=== PATIENT | female | born 1955 | race Caucasian/White ===

== ENCOUNTER 2017-03-02 08:18 | Emergency (ER) | payer OTHER ==
[~2017-03-02] VITALS: Ht 165.1 cm; Wt 107.5 kg
[~2017-03-02 08:18] MED LIST: AMIT75TA13 PO; ATEN50TA PO; FURO-152 PO; GLIM4TAB3 PO; GUAI5SYR4 PO; LOSARTAN PO; SIMV20TA6 PO; Vitamin E TP
[2017-03-02] MEDS ORDERED: SIMV40TA5 PO (08:46)
[2017-03-02] MEDS ORDERED: ALPR1TAB7 PO (08:46)
[2017-03-02] MEDS ORDERED: IV NORMAL SALINE 1000 ML BAG IV ONE (09:00)
[2017-03-02] MEDS ORDERED: LORAZEPAM 2 MG/1 ML VIAL IV ONE (09:00)
[2017-03-02] MEDS ORDERED: LORAZEPAM 2 MG/1 ML VIAL ONE (09:12)
--- NOTE | 2017-03-02 09:14 | NUR ---
0845-Patient is resting comfortably on gurney while watching bedside TV, NAD, no sob seen
[2017-03-02 09:15] LABS: BASOPHILS # (AUTO) 0.1 K/uL (0.0-8.0); BASOPHILS % (AUTO) 0.9 % (0.0-2.0); EOSINOPHILS # (AUTO) 0.5 K/uL (0.0-0.7); EOSINOPHILS % (AUTO) 6.7 % (0.0-7.0); HEMATOCRIT 34.1 % (37-47); HEMOGLOBIN 11.4 G/DL (12.0-16.0); LYMPHOCYTES # (AUTO) 1.7 K/uL (20.0-40.0); MEAN CORPUSCULAR HEMOGLOBIN 29.1 UUG (27.0-31.0); MEAN CORPUSCULAR HGB CONC 34 g/dL (32.0-37.0); MEAN CORPUSCULAR VOLUME 87.1 FL (81.0-99.0); MONOCYTES # (AUTO) 0.5 K/uL (2.0-10.0); MONOCYTES % (AUTO) 6.5 % (0.0-11.0); NEUTROPHILS # (AUTO) 4.7 K/uL (1.8-8.9); NEUTROPHILS % (AUTO) 62.9 % (38.5-71.5); PLATELET COUNT (AUTO) 298 K/UL (150-450); RED BLOOD CELL COUNT(AUTO) 3.91 MIL/UL (4.2-5.4); RED CELL DISTRIBUTION WIDTH 12.4 % (11.5-14.5); WHITE BLOOD COUNT (AUTO) 7.5 K/UL (4.0-11.2)
[2017-03-02 09:25] LABS: CALCIUM 9.2 mg/dL (8.5-10.1); POTASSIUM 4.9 mmol/L (3.5-5.1)
[2017-03-02 09:27] LABS: CREATININE 1.9 mg/dL (0.6-1.3)
[2017-03-02 09:37] LABS: ALBUMIN 3.3 g/dL (3.4-5.0); BILIRUBIN,DIRECT 0.1 mg/dL (0.0-0.2); BILIRUBIN,TOTAL 0.3 mg/dL (0.2-1.0); TOTAL PROTEIN, SERUM 7.2 g/dL (6.4-8.2)
--- NOTE | 2017-03-02 10:30 | NUR ---
Patient is resting comfortably on gurney with eyes closed, visitor at bedside, no complaints at this moment.
--- NOTE | 2017-03-02 11:21 | NUR ---
1110- Patient ambulated with 2 person assist to bathroom to void but unablt to give urine, MD notified. Patient c/o bilateral knee weaknees & mild discomfort during ambulation.
[2017-03-02 11:50] LABS: *BILIRUBIN,URIN NEGATIVE (NEGATIVE); *BLOOD, URINE Trace-lysed (NEGATIVE); *CLARITY,URINE CLEAR (CLEAR); *COLOR,URINE LIGHT YELLOW (YELLOW); *KETONES,URINE NEGATIVE (NEGATIVE); *PROTEIN,URINE NEGATIVE (NEGATIVE); *UROBILINOGEN,URINE 0.2 E.U./dl (NORMAL); LEUKOCYTE ESTERASE ,URINE NEGATIVE (NEGATIVE); NITRITE, URINE NEGATIVE (NEGATIVE); UGLUCOSE NEGATIVE (NEGATIVE)
[2017-03-02 12:15] LABS: BACTERIA,URINE FEW /HPF (NONE SEEN); SQUAMOUS EPITHELIAL CELL,UR FEW /HPF (NONE SEEN)
[2017-03-02] MEDS ORDERED: NITROFURANTOIN/NITROFURAN MAC 100 MG CAPSULE PO ONE (13:45)
[2017-03-02] MEDS ORDERED: NITROFURANTOIN/NITROFURAN MAC 100 MG CAPSULE ONE (13:52)
--- NOTE | 2017-03-02 13:52 | NUR ---
Patient discharged to home in stable conditon. Written and verbal after care instructions given to patient. Patient verbalizes understanding of instructions. Diabetic tray was ordered from kitchen. 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
== END 2017-03-02 13:58 | disposition home or self-care (01) ==
LOC: ER 08:18
DX: N39.0 Urinary tract infection, site not specified (principal); F41.9 Anxiety disorder, unspecified; I10 Essential (primary) hypertension; E11.9 Type 2 diabetes mellitus without complications; F17.200 Nicotine dependence, unspecified, uncomplicated; Z88.8 Allergy status to other drugs, medicaments and biological substances
CPT/HCPCS: 36415; 51702; 70450; 71010; 80048; 80076; 81001; 83880; 84484; 85025; 87086; 93005; 96361; 96374; 99285; A4663; C1758; J2060; 70030-TC

== ENCOUNTER 2017-08-20 13:37 | Inpatient (IN) | payer OTHER ==
[~2017-08-20] VITALS: Ht 165.1 cm; Wt 65.3 kg
[~2017-08-20 13:37] MED LIST changes: +ALPR1TAB7 PO; -FURO-152 PO; -GUAI5SYR4 PO; -SIMV20TA6 PO; +SIMV40TA5 PO
[2017-08-20] MEDS ORDERED: IV NORMAL SALINE 500 ML BAG IV ONE ×2 (14:00→14:15)
--- NOTE | 2017-08-20 14:04 | NUR ---
PT IS IN ROOM #2A. DR WING EVALUATED THE PT.
[2017-08-20] MEDS ORDERED: CEFTRIAXONE 1 G in IV DEXTROSE 5% 50 ML IV ONE (14:15)
[2017-08-20] MEDS ORDERED: ACETAMINOPHEN ES 500 MG TABLET PO ONE (14:15)
[2017-08-20 14:19] LABS: *BILIRUBIN,URIN NEGATIVE (NEGATIVE); *BLOOD, URINE 2+ (NEGATIVE); *CLARITY,URINE SLIGHTLY CLOUDY (CLEAR); *COLOR,URINE YELLOW (YELLOW); *KETONES,URINE NEGATIVE (NEGATIVE); *PROTEIN,URINE NEGATIVE (NEGATIVE); *UROBILINOGEN,URINE 0.2 E.U./dl (NORMAL); LEUKOCYTE ESTERASE ,URINE 1+ (NEGATIVE); NITRITE, URINE NEGATIVE (NEGATIVE); UGLUCOSE NEGATIVE (NEGATIVE)
[2017-08-20] MEDS ORDERED: VITAMIN E (14:19)
[2017-08-20] MEDS ORDERED: CEFTRIAXONE 1 G VIAL ONE (14:26)
[2017-08-20] MEDS ORDERED: ACETAMINOPHEN ES 500 MG TABLET ONE (14:27)
[2017-08-20 14:39] LABS: BACTERIA,URINE MODERATE /HPF (NONE SEEN); SQUAMOUS EPITHELIAL CELL,UR MANY /HPF (NONE SEEN)
[2017-08-20 14:55] LABS: CREATININE 1.5 mg/dL (0.6-1.3); POTASSIUM 4.4 mmol/L (3.5-5.1)
[2017-08-20 14:57] LABS: HEMATOCRIT 37.3 % (37-47); HEMOGLOBIN 12.2 G/DL (12.0-16.0); RED BLOOD CELL COUNT(AUTO) 4.25 MIL/UL (4.2-5.4)
[2017-08-20 14:59] LABS: BASOPHILS % (AUTO) 0.6 % (0.0-2.0); EOSINOPHILS # (AUTO) 0.3 K/uL (0.0-0.7); EOSINOPHILS % (AUTO) 3.8 % (0.0-7.0); LYMPHOCYTES # (AUTO) 1.6 K/UL (0.8-4.8); LYMPHOCYTES % (AUTO) 19.7 % (20.5-51.5); MEAN CORPUSCULAR HEMOGLOBIN 28.8 UUG (27.0-31.0); MEAN CORPUSCULAR HGB CONC 33 g/dL (32.0-37.0); MEAN CORPUSCULAR VOLUME 87.8 FL (81.0-99.0); MONOCYTES # (AUTO) 0.5 K/UL (0.1-1.30); MONOCYTES % (AUTO) 5.6 % (0.0-11.0); NEUTROPHILS # (AUTO) 5.9 K/UL (1.8-8.9); NEUTROPHILS % (AUTO) 70.3 % (38.5-71.5); PLATELET COUNT (AUTO) 236 K/UL (150-450); WHITE BLOOD COUNT (AUTO) 8.3 K/UL (4.0-11.2)
[2017-08-20 15:01] LABS: BILIRUBIN,DIRECT 0.1 mg/dL (0.0-0.2); BILIRUBIN,TOTAL 0.3 mg/dL (0.2-1.0); TOTAL PROTEIN, SERUM 7.3 g/dL (6.4-8.2)
--- NOTE | 2017-08-20 15:15 | NUR ---
CODE SEPSIS CANCELLED BY DR WING. PT IS RESTING IN BED COMFORTABLY. NO S/S OF ACUTE DISTRESS AT THIS TIME.
[2017-08-20] MEDS ORDERED: ACETAMINOPHEN 325 MG TABLET PO PRN (15:45)
[2017-08-20] MEDS ORDERED: ONDANSETRON 4 MG/2 ML VIAL IV PRN (15:45)
--- NOTE | 2017-08-20 16:16 | NUR ---
REPORT WAS GIVEN TO RN M/S. PT WAS TRANSFERED TO M/S ROOM #214.
[2017-08-20 17:00] VITALS: BP 128/89
[2017-08-20] MEDS ORDERED: DEXTROSE 50% 50 ML DISP.SYRIN IV PRN (17:00)
[2017-08-20] MEDS ORDERED: PROMETHAZINE/CODEINE 5 ML UDC PO PRN (17:00)
[2017-08-20] MEDS ORDERED: AMITRIPTYLINE HCL 75 MG PO SCH (17:00)
[2017-08-20] MEDS ORDERED: ALPRAZOLAM 0.5 MG TABLET PO PRN (17:00)
--- NOTE | 2017-08-20 17:00 | NUR ---
NEW PATIENT TO ROOM 214 AWAKE ALERT COOPERATE WELL NO SOB OR PAIN ON FALL PRECAUTION BED ALARM ON AND CALL LIGHT IN REACH AND INSTRUCTION TO CALL WHEN NEEDED
[2017-08-20] MEDS ORDERED: hydrALAZINE HCL 25 MG TABLET PO PRN (17:15)
--- NOTE | 2017-08-20 18:00 | NUR ---
EAT DINNER WELL NO S/S OF HYPO/HYPERGLYCEMIA NO SOB OR PAIN
[2017-08-20] MEDS: IV NS 1000 ML 1,000 ML IV PRN (18:15)
[2017-08-20] MEDS: GLIMEPIRIDE 4 MG TABLET PO SCH (18:26)
[2017-08-20] MEDS: GUAIFENESIN/CODEINE 5 ML LIQUID UDC PO PRN (18:28)
--- NOTE | 2017-08-20 18:30 | NUR ---
STABLE HEMODYNAMIC SAFETY MEASURE PROVIDED BED ALARM ON AND CALL LIGHT WITHIN REACH NO ACUTE DISTRESS
--- NOTE | 2017-08-20 19:35 | NUR ---
PT RECEIVED IN BED, AWAKE. A/O 4. ABLE TO MAKE NEEDS KNOWN. V/S STABLE. IN NO ACUTE DISTRESS. NO C/O PAIN AT THIS TIME. IVF INFUSING. ON RA, TOLERATING WELL. PT HAS DIFFICULTY COMPLETING SENTENCES. TIRES EASILY. ENCOURAGED PT TO USE CALL LIGHT FOR ASSIST. BED ALARM SET. SAFETY MEASURES IMPLEMENTED. CALL LIGHT WITHIN REACH.
[2017-08-20 20:00] VITALS: BP 117/59
[2017-08-20] MEDS: SIMVASTATIN 40 MG TABLET PO SCH (20:27)
[2017-08-20] MEDS: AMITRIPTYLINE HCL 50 MG TABLET PO SCH (20:28)
[2017-08-20] MEDS: BLOOD SUGAR DIAGNOSTIC 1 EACH STRIP VI SCH (20:32)
[2017-08-20] MEDS: MORPHINE SULFATE 2 MG/1 ML DISP.SYRIN IV PRN (20:38)
[2017-08-20] MEDS: ALPRAZOLAM 0.5 MG TABLET PO PRN (21:59)
[2017-08-21] MEDS: GUAIFENESIN/CODEINE 5 ML LIQUID UDC PO PRN ×4 (00:49→23:17)
[2017-08-21] MEDS: MORPHINE SULFATE 2 MG/1 ML DISP.SYRIN IV PRN ×4 (03:35→23:18)
[2017-08-21 04:54] VITALS: BP 96/62
--- NOTE | 2017-08-21 06:20 | NUR ---
END OF SHIFT NOTES. PT SLEPT INTERMITTENTLY THROUGHOUT SHIFT. PT IN NEED OF FREQUENT REORIENTATION. FORGETFUL. PT IN STABLE CONDITION. IVF INFUSING. PAIN MANAGED. PT C/O OF INCREASED COUGH. PROVIDED ANTITUSSIVE MEDICATION ORDERED. SAFETY MAINTAINED. CALL LIGHT WITHIN REACH.
[2017-08-21] MEDS: BLOOD SUGAR DIAGNOSTIC 1 EACH STRIP VI SCH ×4 (06:26→20:47)
[2017-08-21 06:54] LABS: THYROID STIMULATING HORMONE 4.121 mIU/mL (0.358-3.740)
[2017-08-21 06:55] LABS: BASOPHILS # (AUTO) 0.1 K/uL (0.0-8.0); BASOPHILS % (AUTO) 0.8 % (0.0-2.0); EOSINOPHILS # (AUTO) 0.4 K/uL (0.0-0.7); EOSINOPHILS % (AUTO) 3.9 % (0.0-7.0); HEMATOCRIT 35.8 % (37-47); HEMOGLOBIN 11.6 G/DL (12.0-16.0); LYMPHOCYTES # (AUTO) 3.2 K/UL (0.8-4.8); LYMPHOCYTES % (AUTO) 34.3 % (20.5-51.5); MEAN CORPUSCULAR HEMOGLOBIN 28.5 UUG (27.0-31.0); MEAN CORPUSCULAR HGB CONC 32 g/dL (32.0-37.0); MONOCYTES # (AUTO) 0.7 K/UL (0.1-1.30); MONOCYTES % (AUTO) 7.2 % (0.0-11.0); NEUTROPHILS % (AUTO) 53.8 % (38.5-71.5); PLATELET COUNT (AUTO) 263 K/UL (150-450); RED BLOOD CELL COUNT(AUTO) 4.06 MIL/UL (4.2-5.4); WHITE BLOOD COUNT (AUTO) 9.4 K/UL (4.0-11.2)
[2017-08-21 06:59] LABS: BILIRUBIN,TOTAL 0.3 mg/dL (0.2-1.0); CREATININE 1.5 mg/dL (0.6-1.3); MAGNESIUM 1.7 mg/dL (1.8-2.4); PHOSPHOROUS 4.3 mg/dL (2.5-4.9); POTASSIUM 4.3 mmol/L (3.5-5.1); TOTAL PROTEIN, SERUM 7.5 g/dL (6.4-8.2)
--- NOTE | 2017-08-21 08:00 | NUR ---
Discussed plan of care with pt re: fall precaution, pain management, Pt is agreeable with plan of care. Call light is within reach.
[2017-08-21] MEDS: AMITRIPTYLINE HCL 50 MG TABLET PO SCH ×2 (08:57→20:43)
[2017-08-21] MEDS: GLIMEPIRIDE 4 MG TABLET PO SCH ×2 (08:57→17:20)
[2017-08-21] MEDS: FAMOTIDINE 20 MG TABLET PO SCH (08:57)
[2017-08-21] MEDS ORDERED: MAGNESIUM SULFATE/D5W 100 ML IV SCH (10:15)
[2017-08-21] MEDS: ALPRAZOLAM 0.5 MG TABLET PO PRN ×2 (11:37→20:43)
[2017-08-21 11:38] VITALS: BP 149/83
[2017-08-21] MEDS: CEFTRIAXONE 1 G in IV DEXTROSE 5% 50 ML IV SCH (15:02)
[2017-08-21 15:36] VITALS: BP 116/67
[2017-08-21] MEDS: IV NS 1000 ML 1,000 ML IV PRN (16:30)
[2017-08-21] MEDS: INSULIN REGULAR, HUMAN 300 UNIT/3 ML VIAL SQ PRN (16:44)
--- NOTE | 2017-08-21 18:00 | NUR ---
Pt is in no acute distress. Plan of care effective. No fall noted. Pt currently denies any c/o pain.
--- NOTE | 2017-08-21 19:30 | NUR ---
Pt alert awake in room in no acute distress. No s/s reaction to current abx IV therapy. States pain to right leg. BP 145/83. Able to move upper and lower extremities with limited ROM to left arm. Able to get out of bed. Pt advised to request for help when using commode. No s/s of hypo/hyperglycemia. Continue to monitor. Call light placed withinr each.
[2017-08-21 20:00] VITALS: BP 145/83
[2017-08-21] MEDS: SIMVASTATIN 40 MG TABLET PO SCH (20:43)
--- NOTE | 2017-08-22 01:00 | NUR ---
PT REFUSES TO HAVE CONTINUOUS IV FLUIDS AT THIS TIME. SITE PUT ON HEP LOCK AT THIS TIME.
[2017-08-22 05:25] VITALS: BP 143/64
--- NOTE | 2017-08-22 06:00 | NUR ---
PT IN ROOM ALERT AWAKE IN NO ACUTE DISTRESS. REQUESTED MORPHINE D/T PAIN TO LOWER EXTREMITIES AND SHOULDER. BS NOTED 107. NO S/S OF HYPER/HYPOGLYCEMIA. ABLE TO USE COMMODE WITHOUT DIFFICULTY. NO ABNORMAL SKIN BRUISING NOTED. CONTINUE TO MONITOR.
[2017-08-22] MEDS: MORPHINE SULFATE 2 MG/1 ML DISP.SYRIN IV PRN (06:27)
[2017-08-22] MEDS: BLOOD SUGAR DIAGNOSTIC 1 EACH STRIP VI SCH ×4 (06:36→20:33)
[2017-08-22 06:41] LABS: BASOPHILS % (AUTO) 0.6 % (0.0-2.0); EOSINOPHILS # (AUTO) 0.4 K/uL (0.0-0.7); EOSINOPHILS % (AUTO) 5.4 % (0.0-7.0); HEMATOCRIT 33.3 % (37-47); HEMOGLOBIN 11.3 G/DL (12.0-16.0); LYMPHOCYTES # (AUTO) 1.9 K/UL (0.8-4.8); LYMPHOCYTES % (AUTO) 26.2 % (20.5-51.5); MEAN CORPUSCULAR HEMOGLOBIN 29.6 UUG (27.0-31.0); MEAN CORPUSCULAR HGB CONC 34 g/dL (32.0-37.0); MEAN CORPUSCULAR VOLUME 87.5 FL (81.0-99.0); MONOCYTES # (AUTO) 0.5 K/UL (0.1-1.30); MONOCYTES % (AUTO) 6.8 % (0.0-11.0); NEUTROPHILS # (AUTO) 4.5 K/UL (1.8-8.9); PLATELET COUNT (AUTO) 211 K/UL (150-450); RED BLOOD CELL COUNT(AUTO) 3.81 MIL/UL (4.2-5.4); WHITE BLOOD COUNT (AUTO) 7.3 K/UL (4.0-11.2)
[2017-08-22 06:51] LABS: BILIRUBIN,TOTAL 0.2 mg/dL (0.2-1.0); CREATININE 1.5 mg/dL (0.6-1.3); MAGNESIUM 1.8 mg/dL (1.8-2.4); PHOSPHOROUS 4.5 mg/dL (2.5-4.9); POTASSIUM 4.7 mmol/L (3.5-5.1); TOTAL PROTEIN, SERUM 6.7 g/dL (6.4-8.2)
--- NOTE | 2017-08-22 07:39 | NUR ---
PT RECEIVED IN BED, AWAKE. A/O 3. ABLE TO MAKE NEEDS KNOWN. V/S STABLE. IN NO ACUTE DISTRESS. NO C/O PAIN AT THIS TIME.. ENCOURAGED PT TO USE CALL LIGHT FOR ASSIST. BED ALARM on. SAFETY MEASURES IMPLEMENTED. CALL LIGHT WITHIN REACH.
[2017-08-22] MEDS: GLIMEPIRIDE 4 MG TABLET PO SCH ×2 (08:11→17:13)
[2017-08-22] MEDS: FAMOTIDINE 20 MG TABLET PO SCH (08:11)
[2017-08-22] MEDS: AMITRIPTYLINE HCL 50 MG TABLET PO SCH ×2 (08:11→20:15)
[2017-08-22] MEDS: INSULIN REGULAR, HUMAN 300 UNIT/3 ML VIAL SQ PRN (10:53)
[2017-08-22 11:24] VITALS: BP 112/54
[2017-08-22] MEDS: CEFTRIAXONE 1 G in IV DEXTROSE 5% 50 ML IV SCH (13:23)
[2017-08-22] MEDS: ALPRAZOLAM 0.5 MG TABLET PO PRN ×2 (13:42→22:54)
[2017-08-22] MEDS: IV NS 1000 ML 1,000 ML IV PRN (15:04)
[2017-08-22 15:07] VITALS: BP 120/50
[2017-08-22] MEDS: MUPIROCIN 2% OINT 22 GM TUBE NS SCH ×2 (17:58→20:16)
--- NOTE | 2017-08-22 18:03 | NUR ---
PT IN ROOM ALERT AWAKE IN NO ACUTE DISTRESS. ABLE TO USE COMMODE WITHOUT DIFFICULTY.EAT HER DINNER CONTINUE TO MONITOR.
--- NOTE | 2017-08-22 19:30 | NUR ---
PT IS SITTING EDGE OF THE BED. A/O X 2 WITH PERIODS OF FORGETFULNESS. DENIES ANY PAIN AT THIS TIME. ABLE TO FOLLOW SIMPLE COMMANDS WITHOUT DIFFICULTY. PT REMINDED TO USE CALL LIGHT FOR ASSISTANCE. BEDSIDE COMMODE PRESENT. BP 143/79. CONTINUE TO MONITOR.
[2017-08-22 20:00] VITALS: BP 143/79
[2017-08-22] MEDS: SIMVASTATIN 40 MG TABLET PO SCH (20:15)
--- NOTE | 2017-08-22 23:00 | NUR ---
PT REMOVED PHERIPHERAL IV TO RIGHT FOREARM. STATED IT WAS BOTHERING HER. REFUSES TO HAVE IV INSERTED AT A DIFFERENT LOCATION. PT UNABLE TO STATE WHERE SHE IS. NEEDS FREQUENT REMINDERS AND REDIRECTING. NO ACUTE DISTRESS. PT WAS GIVEN PRN xANAX 1MG PO. PT STATED SHE WANTS TO LEAVE. EXPLAINED TO PT MD STATES POSSIBLE DISCHARGE ONCE STABLE. CONTINUE TO MONITOR.
--- NOTE | 2017-08-23 02:00 | NUR ---
PT ASLEEP IN ROOM WITH NO INCREASED CONFUSION. NO ACUTE DISTRESS. CONTINUE TO MONITOR.
[2017-08-23 05:43] VITALS: BP 149/85
--- NOTE | 2017-08-23 06:22 | NUR ---
PT IN ROOM NOTED WITH INCREASED CONFUSION. NOTIFIED DR ALMODOVAR OF PT BEHAVIOR OF PULLED OUT IV AND REFUSING REINSERTION. WILL TRY AGAIN.
[2017-08-23 07:00] LABS: BILIRUBIN,TOTAL 0.2 mg/dL (0.2-1.0); CREATININE 1.2 mg/dL (0.6-1.3); MAGNESIUM 1.7 mg/dL (1.8-2.4); PHOSPHOROUS 4.3 mg/dL (2.5-4.9); POTASSIUM 4.3 mmol/L (3.5-5.1); TOTAL PROTEIN, SERUM 7.4 g/dL (6.4-8.2)
[2017-08-23 07:06] LABS: BASOPHILS # (AUTO) 0.1 K/uL (0.0-8.0); BASOPHILS % (AUTO) 0.7 % (0.0-2.0); EOSINOPHILS # (AUTO) 0.4 K/uL (0.0-0.7); EOSINOPHILS % (AUTO) 4.7 % (0.0-7.0); HEMOGLOBIN 11.6 G/DL (12.0-16.0); LYMPHOCYTES # (AUTO) 1.7 K/UL (0.8-4.8); LYMPHOCYTES % (AUTO) 21.4 % (20.5-51.5); MEAN CORPUSCULAR HEMOGLOBIN 28.8 UUG (27.0-31.0); MEAN CORPUSCULAR HGB CONC 33 g/dL (32.0-37.0); MEAN CORPUSCULAR VOLUME 86.7 FL (81.0-99.0); MONOCYTES # (AUTO) 0.5 K/UL (0.1-1.30); MONOCYTES % (AUTO) 6.8 % (0.0-11.0); NEUTROPHILS # (AUTO) 5.1 K/UL (1.8-8.9); NEUTROPHILS % (AUTO) 66.4 % (38.5-71.5); PLATELET COUNT (AUTO) 228 K/UL (150-450); RED BLOOD CELL COUNT(AUTO) 4.04 MIL/UL (4.2-5.4); WHITE BLOOD COUNT (AUTO) 7.8 K/UL (4.0-11.2)
[2017-08-23] MEDS: BLOOD SUGAR DIAGNOSTIC 1 EACH STRIP VI SCH ×3 (07:06→16:32)
[2017-08-23] MEDS: GLIMEPIRIDE 4 MG TABLET PO SCH ×2 (08:00→18:00)
[2017-08-23] MEDS: AMITRIPTYLINE HCL 50 MG TABLET PO SCH (08:01)
[2017-08-23] MEDS: MUPIROCIN 2% OINT 22 GM TUBE NS SCH (08:01)
[2017-08-23] MEDS: FAMOTIDINE 20 MG TABLET PO SCH (08:52)
[2017-08-23] MEDS: ALPRAZOLAM 0.5 MG TABLET PO PRN (10:16)
[2017-08-23] MEDS ORDERED: MAGNESIUM SULFATE/D5W 100 ML IV SCH (10:45)
[2017-08-23] MEDS: INSULIN REGULAR, HUMAN 300 UNIT/3 ML VIAL SQ PRN (10:59)
[2017-08-23] MEDS ORDERED: MAGNESIUM OXIDE 400 MG TABLET PO ONE (11:00)
[2017-08-23 11:03] VITALS: BP 150/94
[2017-08-23] MEDS ORDERED: LACT1CAP69 PO (13:25)
[2017-08-23] MEDS ORDERED: CEPH500C2 PO (13:25)
[2017-08-23] MEDS ORDERED: MUPI22OI2 NS (13:25)
[2017-08-23] MEDS ORDERED: hydrALAZINE HCL 10 MG TABLET PO SCH (13:30)
[2017-08-23] MEDS ORDERED: HYDR-4075 PO (13:39)
[2017-08-23] MEDS ORDERED: CEPHALEXIN MONOHYDRATE 500 MG CAPSULE PO SCH (14:00)
--- NOTE | 2017-08-23 14:00 | NUR ---
PT ASLEEP IN ROOM WITH NO INCREASED CONFUSION. NO ACUTE DISTRESS. CONTINUE TO MONITOR.
--- NOTE | 2017-08-23 15:00 | NUR ---
pt refused to take the wound picture.
[2017-08-23 15:21] VITALS: BP 149/80
--- NOTE | 2017-08-23 19:40 | NUR ---
PATIENT DISCHARGE TODAY, TAKEN BY SISTER VIA PRIVATE CAR, GAVE PAPER WORK TO SISTER. TAKEN ALL BELONGINGS..
== END 2017-08-23 19:30 | disposition home health service (06) | DRG 463 ==
LOC: ER 13:39 → MED 16:09
PROVIDERS: ADMIT Internal Medicine; ATTEND Internal Medicine
DX: N39.0 Urinary tract infection, site not specified (principal); N17.0 Acute kidney failure with tubular necrosis; G93.40 Encephalopathy, unspecified; E44.0 Moderate protein-calorie malnutrition; F41.9 Anxiety disorder, unspecified; E11.65 Type 2 diabetes mellitus with hyperglycemia; E83.42 Hypomagnesemia; I11.9 Hypertensive heart disease without heart failure; E78.5 Hyperlipidemia, unspecified; R26.2 Difficulty in walking, not elsewhere classified; R29.6 Repeated falls; Z87.442 Personal history of urinary calculi; Z87.440 Personal history of urinary (tract) infections; Z79.899 Other long term (current) drug therapy; Z87.891 Personal history of nicotine dependence; M19.90 Unspecified osteoarthritis, unspecified site; M25.561 Pain in right knee; E02 Subclinical iodine-deficiency hypothyroidism; R47.1 Dysarthria and anarthria; R05 Cough; Z86.73 Personal history of transient ischemic attack (TIA), and cerebral infarction without residual deficits; F32.9 Major depressive disorder, single episode, unspecified; Z68.24 Body mass index [BMI] 24.0-24.9, adult; D64.9 Anemia, unspecified; Z22.322 Carrier or suspected carrier of Methicillin resistant Staphylococcus aureus; M25.461 Effusion, right knee; M76.9 Unspecified enthesopathy, lower limb, excluding foot; E66.3 Overweight; I70.0 Atherosclerosis of aorta
CPT/HCPCS: 36415; 70030-TC; 70450; 71010; 73560; 83605; 83735; 84100; 84443; 85025; 85730; 87040; 87086; 92523; 93005; 97116; 97530; A4663; J0696; J1815; J2270; J3475; J7030; J7060

== ENCOUNTER 2017-08-26 22:45 | Inpatient (IN) | payer OTHER ==
[~2017-08-26] VITALS: Ht 157.5 cm; Wt 117.9 kg
[~2017-08-26 22:45] MED LIST changes: -ALPR1TAB7 PO; -ATEN50TA PO; +CEPH500C2 PO; +HYDR-4075 PO; +LACT1CAP69 PO; -LOSARTAN PO; +MUPI22OI2 NS; -Vitamin E TP
--- NOTE | 2017-08-26 23:00 | NUR ---
PATIENT HAS PERIOD OF FORGETFULNESS. PATIENT HAS TO BE KEPT BEING REMINDED ABOUT CAR WERE HER CAR ESCOBAR IS
--- NOTE | 2017-08-26 23:06 | NUR ---
Patient out of unit for ct scan via gurny
[2017-08-26 23:19] LABS: BASOPHILS # (AUTO) 0.1 K/uL (0.0-8.0); BASOPHILS % (AUTO) 1.3 % (0.0-2.0); EOSINOPHILS # (AUTO) 0.3 K/uL (0.0-0.7); EOSINOPHILS % (AUTO) 3.3 % (0.0-7.0); HEMATOCRIT 39.1 % (37-47); HEMOGLOBIN 12.8 G/DL (12.0-16.0); MEAN CORPUSCULAR HEMOGLOBIN 28.6 UUG (27.0-31.0); MEAN CORPUSCULAR HGB CONC 33 g/dL (32.0-37.0); MEAN CORPUSCULAR VOLUME 87.4 FL (81.0-99.0); MONOCYTES # (AUTO) 0.7 K/UL (0.1-1.30); MONOCYTES % (AUTO) 7.1 % (0.0-11.0); NEUTROPHILS # (AUTO) 6.5 K/UL (1.8-8.9); NEUTROPHILS % (AUTO) 67.3 % (38.5-71.5); PLATELET COUNT (AUTO) 277 K/UL (150-450); RED BLOOD CELL COUNT(AUTO) 4.48 MIL/UL (4.2-5.4); WHITE BLOOD COUNT (AUTO) 9.6 K/UL (4.0-11.2)
[2017-08-26 23:32] LABS: ALANINE AMINOTRANSFERASE 37 U/L (14-59); ALKALINE PHOSPHATASE 137 U/L (50-136); ASPARTATE AMINOTRANSFERASE 27 U/L (15-37); BILIRUBIN,DIRECT 0.1 mg/dL (0.0-0.2); BILIRUBIN,TOTAL 0.3 mg/dL (0.2-1.0); CARBON DIOXIDE 28 mmol/L (21-32); CHLORIDE 100 mmol/L (98-107); CREATININE 1.6 mg/dL (0.6-1.3); GLUCOSE 97 mg/dL (74-106); POTASSIUM 4.2 mmol/L (3.5-5.1); TOTAL PROTEIN, SERUM 8.1 g/dL (6.4-8.2); UREA NITROGEN, BLOOD 25 mg/dL (7-18)
[2017-08-26 23:37] LABS: ACETAMINOPHEN < 2.0 ug/mL (10-30)
--- NOTE | 2017-08-26 23:38 | NUR ---
Patient back from ct scan with no distress noted
--- NOTE | 2017-08-26 23:40 | NUR ---
Patient able to ambulated to restroom with steady gait
[2017-08-26 23:50] LABS: ETHANOL < 3 MG/DL (0-0)
[2017-08-26 23:56] LABS: *BILIRUBIN,URIN NEGATIVE (NEGATIVE); *BLOOD, URINE Trace-intact (NEGATIVE); *CLARITY,URINE CLEAR (CLEAR); *COLOR,URINE YELLOW (YELLOW); *KETONES,URINE NEGATIVE (NEGATIVE); *PROTEIN,URINE NEGATIVE (NEGATIVE); *UROBILINOGEN,URINE 0.2 E.U./dl (NORMAL); LEUKOCYTE ESTERASE ,URINE NEGATIVE (NEGATIVE); NITRITE, URINE NEGATIVE (NEGATIVE); UGLUCOSE NEGATIVE (NEGATIVE)
[2017-08-27 00:19] LABS: *AMPHETAMINE, URINE NEGATIVE (NEGATIVE); *BARBITURATE, URINE NEGATIVE (NEGATIVE); *CANNABINOID, URINE NEGATIVE (NEGATIVE); *COCCAINE, URINE NEGATIVE (NEGATIVE); *OPIATE, URINE POSITIVE (NEGATIVE); *PHENCYCLIDINE SCREEN,URINE NEGATIVE (NEGATIVE)
[2017-08-27 00:23] LABS: BACTERIA,URINE NONE SEEN /HPF (NONE SEEN); SQUAMOUS EPITHELIAL CELL,UR FEW /HPF (NONE SEEN)
[2017-08-27] MEDS ORDERED: IV NS 1000 ML 1,000 ML IV ONE (01:15)
[2017-08-27] MEDS ORDERED: MAGNESIUM HYDROXIDE 30 ML LIQUID UDC PO PRN (01:15)
[2017-08-27] MEDS ORDERED: Z GUARD REMEDY PASTE 57 GM TUBE TOP PRN (01:15)
[2017-08-27] MEDS ORDERED: ONDANSETRON 4 MG/2 ML VIAL IV PRN (01:15)
[2017-08-27] MEDS ORDERED: ACETAMINOPHEN 325 MG TABLET PO PRN (01:15)
--- NOTE | 2017-08-27 01:25 | NUR ---
transfered to 2nd floor via ana
--- NOTE | 2017-08-27 01:30 | NUR ---
ADMITTED PATIENT IN THE MED SURG FLOOR UNDER DR. ALMODOVAR. INVENTORY DONE. PATIENT PREFER TO KEEP HER PURSE WITH HALL ON IT, PATIENT ALERT ORIENTED, RESPECT PATIENT REQUEST.
[2017-08-27 01:33] VITALS: BP 98/72
[2017-08-27] MEDS: ZOLPIDEM 5 MG TABLET PO PRN (01:46)
[2017-08-27] MEDS ORDERED: ACETAMINOPHEN 325 MG TABLET ONE (01:57)
[2017-08-27] MEDS ORDERED: ZOLPIDEM 5 MG TABLET ONE (01:58)
[2017-08-27] MEDS ORDERED: DEXTROSE 50% 50 ML DISP.SYRIN IV PRN (04:15)
[2017-08-27 04:47] VITALS: BP 128/66
[2017-08-27] MEDS: BLOOD SUGAR DIAGNOSTIC 1 EACH STRIP VI SCH ×4 (06:17→20:24)
[2017-08-27] MEDS: CEPHALEXIN MONOHYDRATE 500 MG CAPSULE PO SCH ×3 (06:47→21:10)
[2017-08-27] MEDS ORDERED: CEPHALEXIN MONOHYDRATE 500 MG CAPSULE ONE (06:57)
[2017-08-27] MEDS: AMITRIPTYLINE HCL 50 MG TABLET PO SCH ×2 (08:58→17:09)
[2017-08-27] MEDS: GLIMEPIRIDE 4 MG TABLET PO SCH ×2 (08:58→17:09)
[2017-08-27] MEDS: hydrALAZINE HCL 10 MG TABLET PO SCH ×2 (08:58→20:21)
[2017-08-27] MEDS ORDERED: MORPHINE SULFATE 2 MG/1 ML DISP.SYRIN IV PRN (10:45)
[2017-08-27 11:18] VITALS: BP 109/52
[2017-08-27] MEDS: INSULIN REGULAR, HUMAN 300 UNIT/3 ML VIAL SQ PRN ×2 (12:09→20:34)
[2017-08-27] MEDS: MUPIROCIN 2% OINT 22 GM TUBE NS SCH ×2 (12:11→20:20)
[2017-08-27] MEDS: MORPHINE SULFATE 4 MG/1 ML DISP.SYRIN IV PRN ×3 (12:33→21:10)
[2017-08-27 15:40] VITALS: BP 137/76
--- NOTE | 2017-08-27 18:46 | NUR ---
PT AWAKE IN BED, IN NO ACUTE DISTRESS. MEDICATED FOR PAIN THROUGHOUT SHIFT NEEDED. ALL SAFETY AND COMFORT MEASURES ATTENDED TOO, CALL LIGHT IN REACH.
[2017-08-27] MEDS: ACIDOPHILUS/BULGARICUS CHEW TAB PO SCH (20:21)
[2017-08-27] MEDS: SIMVASTATIN 40 MG TABLET PO SCH (20:21)
[2017-08-27 20:32] VITALS: BP 119/75
[2017-08-28] MEDS: MORPHINE SULFATE 4 MG/1 ML DISP.SYRIN IV PRN ×5 (02:21→21:25)
[2017-08-28 05:18] VITALS: BP 159/83
[2017-08-28 06:28] LABS: BASOPHILS % (AUTO) 0.6 % (0.0-2.0); EOSINOPHILS # (AUTO) 0.4 K/uL (0.0-0.7); EOSINOPHILS % (AUTO) 4.9 % (0.0-7.0); HEMATOCRIT 36.4 % (37-47); HEMOGLOBIN 12.1 G/DL (12.0-16.0); LYMPHOCYTES # (AUTO) 2.3 K/UL (0.8-4.8); LYMPHOCYTES % (AUTO) 29.8 % (20.5-51.5); MEAN CORPUSCULAR HEMOGLOBIN 29.1 UUG (27.0-31.0); MEAN CORPUSCULAR HGB CONC 33 g/dL (32.0-37.0); MEAN CORPUSCULAR VOLUME 87.8 FL (81.0-99.0); MONOCYTES # (AUTO) 0.6 K/UL (0.1-1.30); MONOCYTES % (AUTO) 7.3 % (0.0-11.0); NEUTROPHILS # (AUTO) 4.4 K/UL (1.8-8.9); NEUTROPHILS % (AUTO) 57.4 % (38.5-71.5); PLATELET COUNT (AUTO) 230 K/UL (150-450); RED BLOOD CELL COUNT(AUTO) 4.14 MIL/UL (4.2-5.4); WHITE BLOOD COUNT (AUTO) 7.7 K/UL (4.0-11.2)
[2017-08-28] MEDS: BLOOD SUGAR DIAGNOSTIC 1 EACH STRIP VI SCH ×4 (06:38→21:17)
--- NOTE | 2017-08-28 06:49 | NUR ---
SLEPT INTERMITTENTLY. MEDICATED THROUGHOUT THE NIGHT FOR C/O RIGHT THUMB PAIN 10/. BLOOD SUGAR IN AM WAS 152, WILL ENDORSE TO AM NURSE.
[2017-08-28 07:06] LABS: BILIRUBIN,TOTAL 0.3 mg/dL (0.2-1.0); CREATININE 1.5 mg/dL (0.6-1.3); MAGNESIUM 1.5 mg/dL (1.8-2.4); POTASSIUM 4.3 mmol/L (3.5-5.1); TOTAL PROTEIN, SERUM 7.3 g/dL (6.4-8.2)
[2017-08-28] MEDS: hydrALAZINE HCL 10 MG TABLET PO SCH ×2 (08:06→21:16)
[2017-08-28] MEDS: AMITRIPTYLINE HCL 50 MG TABLET PO SCH ×2 (08:07→17:17)
[2017-08-28] MEDS: ACIDOPHILUS/BULGARICUS CHEW TAB PO SCH ×2 (08:07→21:17)
[2017-08-28] MEDS: MUPIROCIN 2% OINT 22 GM TUBE NS SCH ×2 (08:07→21:22)
[2017-08-28] MEDS: GLIMEPIRIDE 4 MG TABLET PO SCH ×2 (08:07→17:17)
[2017-08-28] MEDS: INSULIN REGULAR, HUMAN 300 UNIT/3 ML VIAL SQ PRN ×3 (08:12→21:19)
[2017-08-28 11:36] VITALS: BP 138/58
[2017-08-28] MEDS ORDERED: MAGNESIUM SULFATE/D5W 100 ML IV SCH (15:15)
[2017-08-28 16:00] VITALS: BP 128/59
--- NOTE | 2017-08-28 19:30 | NUR ---
PT RECEIVED SITTING AT THE EDGE OF THE BED. A/OX3. ABLE TO MAKE NEEDS KNOWN. V/S STABLE. IN NO ACUTE DISTRESS. PT C/O OF RIGHT THUMB PAIN AT 610. WILL ADMIN PAIN MEDICATION ORDERED. IV INTACT AND PATENT. ON RA, TOLERATING WELL. DISCUSSED PLAN OF CARE WITH PT. ORIENTED TO ROOM. SAFETY MEASURES IMPLEMENTED. CALL LIGHT WITHIN REACH
[2017-08-28 20:00] VITALS: BP 127/65
[2017-08-28] MEDS: SIMVASTATIN 40 MG TABLET PO SCH (21:17)
[2017-08-28] MEDS: ZOLPIDEM 5 MG TABLET PO PRN (21:18)
[2017-08-29] MEDS: MORPHINE SULFATE 4 MG/1 ML DISP.SYRIN IV PRN ×3 (02:52→11:55)
--- NOTE | 2017-08-29 06:00 | NUR ---
END OF SHIFT NOTES. PT SLEPT INTERMITTENTLY THROUGHOUT SHIFT. CONTINUES TO BE CONFUSED, NEEDS FREQUENT REORIENTATION TO TIME. IV INTACT AND PATENT. PAIN MANAGED. ENCOURAGED PT TO USE SPLINT, BUT PT STATES IT IS UNCOMFORTABLE. ALL NEEDS ATTENDED. SAFETY MAINTAINED. CALL LIGHT WITHIN REACH.
[2017-08-29 06:04] LABS: CREATININE 1.4 mg/dL (0.6-1.3); MAGNESIUM 1.6 mg/dL (1.8-2.4); POTASSIUM 4.6 mmol/L (3.5-5.1)
[2017-08-29] MEDS: BLOOD SUGAR DIAGNOSTIC 1 EACH STRIP VI SCH ×4 (06:35→20:17)
[2017-08-29 06:36] VITALS: BP 125/58
[2017-08-29] MEDS ORDERED: MORPHINE SULFATE 2 MG/1 ML DISP.SYRIN ONE (07:05)
[2017-08-29] MEDS: GLIMEPIRIDE 4 MG TABLET PO SCH ×2 (08:40→17:00)
[2017-08-29] MEDS: MUPIROCIN 2% OINT 22 GM TUBE NS SCH (08:40)
[2017-08-29] MEDS: AMITRIPTYLINE HCL 50 MG TABLET PO SCH ×2 (08:40→16:59)
[2017-08-29] MEDS: ACIDOPHILUS/BULGARICUS CHEW TAB PO SCH ×2 (08:40→20:08)
[2017-08-29] MEDS: hydrALAZINE HCL 10 MG TABLET PO SCH ×2 (08:41→20:09)
[2017-08-29] MEDS ORDERED: MAGNESIUM SULFATE/D5W 100 ML IV SCH (10:45)
[2017-08-29 11:17] VITALS: BP 114/71
[2017-08-29] MEDS ORDERED: HYDROCODONE/APAP 5-325MG TABLET PO PRN (12:15)
[2017-08-29] MEDS ORDERED: MAGNESIUM OXIDE 400 MG TABLET PO ONE (12:30)
[2017-08-29] MEDS: FAMOTIDINE 20 MG TABLET PO SCH (14:52)
[2017-08-29 15:51] VITALS: BP 122/59
[2017-08-29] MEDS: MORPHINE SULFATE 4 MG/1 ML DISP.SYRIN IM PRN ×3 (16:01→22:56)
[2017-08-29] MEDS: INSULIN REGULAR, HUMAN 300 UNIT/3 ML VIAL SQ PRN ×2 (16:57→20:19)
--- NOTE | 2017-08-29 19:35 | NUR ---
PT RECEIVED IN BED, AWAKE. SISTER AT BEDSIDE. A/OX2. ABLE TO MAKE NEEDS KNOWN. V/S STABLE. IN NO ACUTE DISTRESS. C/O RIGHT THUMB PAIN 06/06. WILL ADMIN PAIN MEDICATION ORDERED. REFUSES TO USE THUMB SPLINT. NO IV IN PLACE. PT CONT TO HAVE CONFUSION. STATES HEARING A FAMILIAR VOICE IN THE NEXT ROOM. ORIENTED PT AND ENCOURAGED HER TO STAY IN HER OWN ROOM. SAFETY MEASURES IMPLEMENTED. CALL LIGHT WITHIN REACH.
[2017-08-29 19:46] VITALS: BP 136/81
[2017-08-29] MEDS: SIMVASTATIN 40 MG TABLET PO SCH (20:08)
[2017-08-29] MEDS: ZOLPIDEM 5 MG TABLET PO PRN (20:10)
[2017-08-29 21:43] VITALS: BP 136/81
[2017-08-30 03:58] VITALS: BP 155/85
[2017-08-30] MEDS: BLOOD SUGAR DIAGNOSTIC 1 EACH STRIP VI SCH ×4 (06:33→19:52)
--- NOTE | 2017-08-30 06:45 | NUR ---
END OF SHIFT NOTES. PT DID NOT SLEEP THROUGHOUT SHIFT. PT CONT TO BE CONFUSED, WANDERING HALLWAY AND ENTERING OTHER PT ROOMS. PT STATES HEARING PEOPLE SPEAKING INDIAN. NEEDS FREQUENT REORIENTATION. INSTRUCTED TO RETURN TO ROOM. HELD PAIN MEDICATION, DUE TO PT INCREASED CONFUSION. CONT TO REFUSE USE OF SPLINT FOR THUMB. ALL NEEDS ATTENDED. SAFETY MAINTAINED. CALL LIGHT WITHIN REACH.
[2017-08-30 06:46] LABS: BILIRUBIN,TOTAL 0.4 mg/dL (0.2-1.0); CREATININE 1.4 mg/dL (0.6-1.3); MAGNESIUM 1.8 mg/dL (1.8-2.4); PHOSPHOROUS 3.3 mg/dL (2.5-4.9); POTASSIUM 4.2 mmol/L (3.5-5.1); TOTAL PROTEIN, SERUM 8.2 g/dL (6.4-8.2)
[2017-08-30 06:51] LABS: BASOPHILS % (AUTO) 0.6 % (0.0-2.0); EOSINOPHILS # (AUTO) 0.2 K/uL (0.0-0.7); EOSINOPHILS % (AUTO) 2.9 % (0.0-7.0); HEMATOCRIT 35.6 % (31.2-41.9); HEMOGLOBIN 12.2 g/dL (10.9-14.3); LYMPHOCYTES % (AUTO) 23.1 % (20.5-51.5); MEAN CORPUSCULAR HEMOGLOBIN 29.8 uug (24.7-32.8); MEAN CORPUSCULAR HGB CONC 34 g/dL (32.3-35.6); MEAN CORPUSCULAR VOLUME 86.8 fL (75.5-95.3); MONOCYTES # (AUTO) 0.7 K/uL (2.0-10.0); MONOCYTES % (AUTO) 7.7 % (0.0-11.0); NEUTROPHILS # (AUTO) 5.6 K/uL (1.8-8.9); NEUTROPHILS % (AUTO) 65.7 % (38.5-71.5); PLATELET COUNT (AUTO) 230 K/uL (179-408); WHITE BLOOD COUNT (AUTO) 8.6 K/uL (3.8-11.8)
[2017-08-30] MEDS: ACIDOPHILUS/BULGARICUS CHEW TAB PO SCH ×2 (08:22→20:04)
[2017-08-30] MEDS: AMITRIPTYLINE HCL 50 MG TABLET PO SCH ×2 (08:22→17:28)
[2017-08-30] MEDS: FAMOTIDINE 20 MG TABLET PO SCH (08:22)
[2017-08-30] MEDS: GLIMEPIRIDE 4 MG TABLET PO SCH ×2 (08:22→17:27)
[2017-08-30] MEDS: INSULIN REGULAR, HUMAN 300 UNIT/3 ML VIAL SQ PRN (08:31)
[2017-08-30] MEDS: hydrALAZINE HCL 10 MG TABLET PO SCH (08:32)
[2017-08-30] MEDS ORDERED: CLONIDINE HCL 0.1 MG TABLET PO PRN (10:15)
[2017-08-30] MEDS: METOPROLOL TARTRATE 25 MG TABLET PO SCH ×2 (11:20→20:05)
[2017-08-30] MEDS: MORPHINE SULFATE 4 MG/1 ML DISP.SYRIN IM PRN ×2 (11:23→19:57)
[2017-08-30 11:40] VITALS: BP 110/40
[2017-08-30] MEDS ORDERED: GLIM4TAB PO (12:07)
[2017-08-30] MEDS ORDERED: Blood Sugar Diagnostic VI (12:07)
[2017-08-30] MEDS ORDERED: SIMV40TA5 PO (12:07)
[2017-08-30] MEDS ORDERED: INSU100V28 SQ (12:07)
[2017-08-30] MEDS ORDERED: AMIT50TA17 PO (12:07)
[2017-08-30] MEDS ORDERED: HYDR-3326 PO (12:07)
[2017-08-30] MEDS ORDERED: ACET325T53 PO (12:07)
[2017-08-30] MEDS ORDERED: FAMO20TA8 PO (12:07)
[2017-08-30] MEDS ORDERED: METO25TA6 PO (12:07)
[2017-08-30] MEDS ORDERED: MAGN400O6 PO (12:07)
[2017-08-30] MEDS ORDERED: ACID1TAB4 PO (12:07)
[2017-08-30] MEDS ORDERED: ZOLP5TAB8 PO (12:07)
[2017-08-30] MEDS ORDERED: CLON0.1T14 PO (12:07)
[2017-08-30] MEDS ORDERED: GABA-534 PO (13:19)
[2017-08-30] MEDS: GABAPENTIN 300 MG CAPSULE PO SCH ×2 (13:44→17:27)
[2017-08-30 15:13] VITALS: BP 116/60
--- NOTE | 2017-08-30 18:49 | NUR ---
1:1 SITTER MAINTAINED THROUGHOUT SHIFT, DISCHARGE NOTED. REPORT CALLED TO SNF. ALL BELONGINGS ACCOUNTED FOR, ALL DISCHARGE PAPERWORK SIGNED, PT VERBALIZED UNDERSTANDING. AMBULANCE TO D[facility] SINKER APPRENTICE 1930, WILL ENDORSE TO DISTRESSER.
[2017-08-30] MEDS: SIMVASTATIN 40 MG TABLET PO SCH (20:04)
[2017-08-30 20:05] VITALS: BP 118/78
--- NOTE | 2017-08-30 20:13 | NUR ---
RECEIVED PATIENT IN THE ROOM SITTING IN BED, ALERT AND ORIENTED X 4 BUT FORGETFUL. WAITING TO BE [facility] VITAL SIGNS ARE STABLE CHARTED. GIVEN EVENING PILLS BEFORE DISCHARGE. COMPLAINT OF 9/10 RIGHT THUMB PAIN GIVEN PRN IV MORPHINE ON LEFT UPPER ARM. REPORT GIVEN TO ZAIRE IN THE ROOM. PATIENT DISCHARGED AT 2011 HRS.
== END 2017-08-30 20:11 | DRG 52 ==
LOC: ER 22:46 → MED 08-27 01:05
PROVIDERS: ADMIT Family Medicine; ATTEND Internal Medicine
PROC: 2W3EX1Z Immobilization of Right Hand using Splint (ICD-10-PCS; principal; 2017-08-27)
DX: G92 Toxic encephalopathy (principal); D68.59 Other primary thrombophilia; E11.42 Type 2 diabetes mellitus with diabetic polyneuropathy; I50.32 Chronic diastolic (congestive) heart failure; E11.22 Type 2 diabetes mellitus with diabetic chronic kidney disease; I13.0 Hypertensive heart and chronic kidney disease with heart failure and stage 1 through stage 4 chronic kidney disease, or unspecified chronic kidney disease; S62.521A Displaced fracture of distal phalanx of right thumb, initial encounter for closed fracture; E11.65 Type 2 diabetes mellitus with hyperglycemia; E66.01 Morbid (severe) obesity due to excess calories; E78.5 Hyperlipidemia, unspecified; G89.29 Other chronic pain; Z59.0 Homelessness; Z71.3 Dietary counseling and surveillance; Z68.42 Body mass index [BMI] 45.0-49.9, adult; V43.52XA Car driver injured in collision with other type car in traffic accident, initial encounter; Y92.410 Unspecified street and highway as the place of occurrence of the external cause; M19.90 Unspecified osteoarthritis, unspecified site; Z79.84 Long term (current) use of oral hypoglycemic drugs; Z79.899 Other long term (current) drug therapy; Z74.09 Other reduced mobility; Z86.14 Personal history of Methicillin resistant Staphylococcus aureus infection; F01.50 Vascular dementia, unspecified severity, without behavioral disturbance, psychotic disturbance, mood disturbance, and anxiety; Z87.440 Personal history of urinary (tract) infections; Z87.891 Personal history of nicotine dependence; Z87.442 Personal history of urinary calculi; Z79.891 Long term (current) use of opiate analgesic; Z86.73 Personal history of transient ischemic attack (TIA), and cerebral infarction without residual deficits; F41.9 Anxiety disorder, unspecified; E83.42 Hypomagnesemia; M25.561 Pain in right knee; R26.81 Unsteadiness on feet; E02 Subclinical iodine-deficiency hypothyroidism; F32.9 Major depressive disorder, single episode, unspecified; I44.0 Atrioventricular block, first degree; N18.9 Chronic kidney disease, unspecified
CPT/HCPCS: 36415; 70030-TC; 70450; 71010; 73130; 80307; 83735; 84100; 84443; 85025; 93005; 93307; 97116; 97165; 97530; 97535; A4663; G0480; G0480-TC; J1815; J2270; J3475; J7030

== ENCOUNTER 2017-11-28 18:30 | Emergency (ER) | payer OTHER ==
[~2017-11-28] VITALS: Ht 165.1 cm; Wt 113.4 kg
[~2017-11-28 18:30] MED LIST changes: +ACET325T53 PO; +ACID1TAB4 PO; +AMIT50TA17 PO; -AMIT75TA13 PO; +Blood Sugar Diagnostic VI; -CEPH500C2 PO; +CLON0.1T14 PO; +FAMO20TA8 PO; +GABA-534 PO; +GLIM4TAB PO; -GLIM4TAB3 PO; +HYDR-3326 PO; -HYDR-4075 PO; +INSU100V28 SQ; -LACT1CAP69 PO; +MAGN400O6 PO; +METO25TA6 PO; -MUPI22OI2 NS; +ZOLP5TAB8 PO
[2017-11-28] MEDS ORDERED: BENZONATATE 100 MG CAPSULE PO ONE (22:15)
[2017-11-28] MEDS ORDERED: ALBUTEROL SULFATE 2.5 MG/3 ML NEBU NEB ONE (22:15)
--- NOTE | 2017-11-28 22:21 | NUR ---
Pt states she has had cough for 2 weeks, became productive in last few days, green and brown phlem. Also c/o generalized aches and slight dizziness. Pt denies CP, SOB, n/v, no other complaints, no distress noted.
[2017-11-28] MEDS ORDERED: ALBUTEROL SULFATE 2.5 MG/3 ML NEBU ONE (22:28)
[2017-11-28] MEDS ORDERED: BENZONATATE 100 MG CAPSULE ONE (22:34)
--- NOTE | 2017-11-28 23:09 | NUR ---
LS not as diminished now. Crackles bilaterally.
--- NOTE | 2017-11-29 00:52 | NUR ---
Gave pt RX and d/c instructions, verbalized understanding.
== END 2017-11-29 00:54 | disposition home or self-care (01) ==
LOC: ER 18:30
DX: J20.8 Acute bronchitis due to other specified organisms (principal); B96.89 Other specified bacterial agents as the cause of diseases classified elsewhere; I11.0 Hypertensive heart disease with heart failure; I50.9 Heart failure, unspecified; D64.9 Anemia, unspecified; E03.9 Hypothyroidism, unspecified; E11.9 Type 2 diabetes mellitus without complications; E66.01 Morbid (severe) obesity due to excess calories; E78.5 Hyperlipidemia, unspecified; F17.200 Nicotine dependence, unspecified, uncomplicated; G62.9 Polyneuropathy, unspecified; G89.29 Other chronic pain; I70.0 Atherosclerosis of aorta; M19.90 Unspecified osteoarthritis, unspecified site; Z79.84 Long term (current) use of oral hypoglycemic drugs; Z87.442 Personal history of urinary calculi; Z98.890 Other specified postprocedural states
CPT/HCPCS: 71045; 94640; 99283; A4663

== ENCOUNTER 2017-12-06 16:33 | Emergency (ER) | payer OTHER ==
[~2017-12-06] VITALS: Ht 165.1 cm; Wt 113.4 kg
--- NOTE | 2017-12-06 16:40 | NUR ---
PATIENT WAS SEEN AND EVAL BY DR WING AT [facility] ROOM 04B.
--- NOTE | 2017-12-06 16:40 | NUR ---
PATIENT WAS BIB RA 909. PATIENT A & O X4. SP FALL. NO KO. NO SOB.
[2017-12-06] MEDS ORDERED: PROMETHAZINE (16:48)
[2017-12-06] MEDS ORDERED: VENTOLIN HFA INH W/DOS CTR 200 (16:48)
[2017-12-06] MEDS ORDERED: CODEINE (16:48)
--- NOTE | 2017-12-06 18:00 | NUR ---
DR WING MADE PATIENT AWARE OF TEST RESULTS. WILL BE DC HOME.
--- NOTE | 2017-12-06 18:06 | NUR ---
Patient discharged to home in stable conditon. Written and verbal after care instructions given. Patient verbalizes understanding of instructions. Copy of test results given.
[2017-12-06 18:07] VITALS: BP 131/77
--- NOTE | 2017-12-06 18:10 | NUR ---
NORMAL STEADY GAIT NOTED. NO CP. NO SOB.
== END 2017-12-06 18:10 | disposition home or self-care (01) ==
LOC: ER 16:33
DX: S60.221A Contusion of right hand, initial encounter (principal); S40.012A Contusion of left shoulder, initial encounter; E11.9 Type 2 diabetes mellitus without complications; I10 Essential (primary) hypertension; M19.012 Primary osteoarthritis, left shoulder; F17.200 Nicotine dependence, unspecified, uncomplicated; Z88.8 Allergy status to other drugs, medicaments and biological substances; Z79.84 Long term (current) use of oral hypoglycemic drugs; W01.0XXA Fall on same level from slipping, tripping and stumbling without subsequent striking against object, initial encounter; Y92.89 Other specified places as the place of occurrence of the external cause; Y93.89 Activity, other specified; Y99.8 Other external cause status
CPT/HCPCS: 73030; 73130; A4663

== ENCOUNTER 2018-01-31 15:16 | Inpatient (IN) | payer OTHER ==
[~2018-01-31] VITALS: Ht 162.6 cm; Wt 122.6 kg
[~2018-01-31 15:16] MED LIST changes: +CODEINE; +PROMETHAZINE; +VENTOLIN HFA INH W/DOS CTR 200
--- NOTE | 2018-01-31 15:33 | NUR ---
BIB EMS FOR FALL. PATIENT STATES SHE CANNOT REMEMBER HOW SHE FELL. PLACED ON MONITOR. PT IS A/A/O X3 IN NO DISTRESS.
[2018-01-31 15:49] LABS: BASOPHILS # (AUTO) 0.1 K/uL (0.0-8.0); BASOPHILS % (AUTO) 0.7 % (0.0-2.0); EOSINOPHILS # (AUTO) 0.5 K/uL (0.0-0.7); EOSINOPHILS % (AUTO) 6.2 % (0.0-7.0); HEMATOCRIT 37.2 % (31.2-41.9); HEMOGLOBIN 12.3 g/dL (10.9-14.3); LYMPHOCYTES # (AUTO) 1.7 K/uL (20.0-40.0); LYMPHOCYTES % (AUTO) 23.2 % (20.5-51.5); MEAN CORPUSCULAR HEMOGLOBIN 29.2 uug (24.7-32.8); MEAN CORPUSCULAR HGB CONC 33 g/dL (32.3-35.6); MONOCYTES # (AUTO) 0.6 K/uL (2.0-10.0); MONOCYTES % (AUTO) 8.6 % (0.0-11.0); NEUTROPHILS # (AUTO) 4.5 K/uL (1.8-8.9); NEUTROPHILS % (AUTO) 61.3 % (38.5-71.5); PLATELET COUNT (AUTO) 234 K/uL (179-408); RED BLOOD CELL COUNT(AUTO) 4.23 MIL/uL (3.63-4.92); WHITE BLOOD COUNT (AUTO) 7.3 K/uL (3.8-11.8)
[2018-01-31 15:56] LABS: CREATININE 1.3 mg/dL (0.6-1.3)
[2018-01-31 16:02] LABS: BILIRUBIN,TOTAL 0.3 mg/dL (0.2-1.0); TOTAL PROTEIN, SERUM 7.5 g/dL (6.4-8.2)
[2018-01-31] MEDS ORDERED: MORPHINE SULFATE 2 MG/1 ML DISP.SYRIN IV ONE (16:15)
[2018-01-31] MEDS ORDERED: KETOROLAC TROMETHAMINE 30 MG INJ IVP ONE (16:15)
[2018-01-31] MEDS ORDERED: ONDANSETRON IV *ER 4 MG/2 ML VIAL IV ONE (16:15)
[2018-01-31] MEDS ORDERED: KETOROLAC TROMETHAMINE 30 MG INJ ONE (16:25)
[2018-01-31] MEDS ORDERED: ONDANSETRON 4 MG/2 ML VIAL ONE (16:25)
[2018-01-31] MEDS ORDERED: MORPHINE SULFATE 2 MG/1 ML DISP.SYRIN ONE (16:25)
[2018-01-31] MEDS ORDERED: ASPIRIN 81 MG TAB.CHEW PO ONE (17:10)
--- NOTE | 2018-01-31 17:11 | NUR ---
PAIN MEDICINE WAS GIVEN EARLIER. PATIENT STATES PAIN HAS DIMINISHED SOME. DR CALVILLO WAS AT BEDSIDE SPEAKING TO PATIENT. PATIENT IS AWARE OF PENDING ADMISSION.
--- NOTE | 2018-01-31 17:34 | NUR ---
REPORT GIVEN TO DEANNA ON TELE FLOOR.
[2018-01-31 18:59] VITALS: BP 115/53
--- NOTE | 2018-01-31 19:30 | NUR ---
Received report from day shift nurse. Pt arrived on the TELE floor at 1830. Currently in bed, orientated patient to unit and use of call light. Pt requesting pain medication. Denies chest pain, but states she has pain in her toes due to her fall. Paged Dr. Nicole for orders.
[2018-01-31] MEDS ORDERED: ACETAMINOPHEN 325 MG TABLET PO PRN (20:15)
[2018-01-31] MEDS ORDERED: MAGNESIUM HYDROXIDE 30 ML LIQUID UDC PO PRN (20:15)
[2018-01-31 20:18] VITALS: BP 130/46
[2018-01-31] MEDS ORDERED: MORPHINE SULFATE 2 MG/1 ML DISP.SYRIN IV PRN (20:30)
[2018-01-31] MEDS: MORPHINE SULFATE 4 MG/1 ML DISP.SYRIN IV PRN (20:53)
[2018-01-31] MEDS: SIMVASTATIN 40 MG TABLET PO SCH (20:53)
[2018-01-31] MEDS: GABAPENTIN 300 MG CAPSULE PO SCH (20:53)
[2018-01-31] MEDS: DOCUSATE SODIUM 100 MG CAPSULE PO SCH (20:53)
[2018-01-31] MEDS: ZOLPIDEM 5 MG TABLET PO PRN (23:47)
[2018-02-01 00:31] VITALS: BP 117/78
[2018-02-01] MEDS: MORPHINE SULFATE 4 MG/1 ML DISP.SYRIN IV PRN ×4 (01:28→16:36)
[2018-02-01 02:31] LABS: *BILIRUBIN,URIN NEGATIVE (NEGATIVE); *BLOOD, URINE 1+ (NEGATIVE); *CLARITY,URINE CLOUDY (CLEAR); *COLOR,URINE YELLOW (YELLOW); *KETONES,URINE NEGATIVE (NEGATIVE); *PROTEIN,URINE 1+ (NEGATIVE); *UROBILINOGEN,URINE 0.2 E.U./dl (NORMAL); LEUKOCYTE ESTERASE ,URINE 2+ (NEGATIVE); NITRITE, URINE POSITIVE (NEGATIVE); UGLUCOSE NEGATIVE (NEGATIVE)
[2018-02-01 02:42] LABS: BACTERIA,URINE MANY /HPF (NONE SEEN); SQUAMOUS EPITHELIAL CELL,UR NONE SEEN /HPF (NONE SEEN); WBC,URINE TNTC /HPF (0-3)
[2018-02-01] MEDS: ACETAMINOPHEN 325 MG TABLET PO PRN (03:24)
[2018-02-01 04:00] VITALS: BP 105/54
--- NOTE | 2018-02-01 05:14 | NUR ---
No c/o chest pain from patient last night. Requested pain medication due to her toes hurting from her fall. Patient requesting snacks and pudding every 1-2 hours. Unable to sleep longer than 2 hours straight, even after administering Ambien. Patient does not want the curtain closed or door slightly shut to provide darkness. Patient constantly waking up and feeling hungry because she did not eat dinner last night, although a sandwich and multiple snacks were offered upon arrival to the unit. Urine and MRSA cultures sent to lab. Call light within reach. All needs attended to. Addendum: 02/01/18 at 0544 by AIMEE FRANCO RN Pt refused DVT pumps due to pain in BLE.
[2018-02-01] MEDS: PANTOPRAZOLE SODIUM 40 MG TABLET.DR PO SCH (06:40)
[2018-02-01 07:28] LABS: BASOPHILS # (AUTO) 0.1 K/uL (0.0-8.0); BASOPHILS % (AUTO) 0.7 % (0.0-2.0); EOSINOPHILS # (AUTO) 0.5 K/uL (0.0-0.7); EOSINOPHILS % (AUTO) 5.7 % (0.0-7.0); HEMATOCRIT 35.9 % (31.2-41.9); HEMOGLOBIN 11.9 g/dL (10.9-14.3); LYMPHOCYTES # (AUTO) 2.6 K/uL (20.0-40.0); LYMPHOCYTES % (AUTO) 31.1 % (20.5-51.5); MEAN CORPUSCULAR HEMOGLOBIN 29.3 uug (24.7-32.8); MEAN CORPUSCULAR HGB CONC 33 g/dL (32.3-35.6); MEAN CORPUSCULAR VOLUME 88.1 fL (75.5-95.3); MONOCYTES # (AUTO) 0.6 K/uL (2.0-10.0); MONOCYTES % (AUTO) 7.6 % (0.0-11.0); NEUTROPHILS # (AUTO) 4.6 K/uL (1.8-8.9); NEUTROPHILS % (AUTO) 54.9 % (38.5-71.5); PLATELET COUNT (AUTO) 261 K/uL (179-408); RED BLOOD CELL COUNT(AUTO) 4.07 MIL/uL (3.63-4.92); WHITE BLOOD COUNT (AUTO) 8.3 K/uL (3.8-11.8)
[2018-02-01 07:49] LABS: THYROID STIMULATING HORMONE 6.488 mIU/mL (0.358-3.740)
[2018-02-01 07:57] LABS: BILIRUBIN,TOTAL 0.2 mg/dL (0.2-1.0); CREATININE 1.6 mg/dL (0.6-1.3); PHOSPHOROUS 5.1 mg/dL (2.5-4.9); POTASSIUM 5.4 mmol/L (3.5-5.1); TOTAL PROTEIN, SERUM 7.4 g/dL (6.4-8.2)
--- NOTE | 2018-02-01 08:00 | NUR ---
AWAKE ALERT AND COOPERATIVE, NO SS OF SOB OR CP REMAINS SR ON MONITOR. CONTINUE WITH TELE OBSERVATION
[2018-02-01] MEDS: AMITRIPTYLINE HCL 50 MG TABLET PO SCH ×2 (08:33→16:38)
[2018-02-01] MEDS: GABAPENTIN 300 MG CAPSULE PO SCH ×2 (08:34→16:38)
[2018-02-01] MEDS: ASPIRIN 81 MG TAB.CHEW PO SCH (08:34)
[2018-02-01] MEDS: GLIMEPIRIDE 4 MG TABLET PO SCH ×2 (08:34→16:35)
[2018-02-01] MEDS ORDERED: DEXTROSE 50% 50 ML DISP.SYRIN IV PRN (10:15)
[2018-02-01] MEDS ORDERED: SODIUM POLYSTYRENE SULFONATE 15 G/60 ML LIQUID UDC PO ONE (10:15)
[2018-02-01 11:09] VITALS: BP 122/59
[2018-02-01] MEDS: BLOOD SUGAR DIAGNOSTIC 1 EACH STRIP VI SCH ×3 (11:15→21:24)
[2018-02-01] MEDS: CEFTRIAXONE 1 G in IV DEXTROSE 5% 50 ML IV SCH (11:20)
[2018-02-01] MEDS: INSULIN REGULAR, HUMAN 300 UNIT/3 ML VIAL SQ PRN ×3 (11:23→21:23)
[2018-02-01] MEDS ORDERED: ALBUTEROL SULFATE 2.5 MG/3 ML NEBU NEB PRN (11:30)
--- NOTE | 2018-02-01 11:55 | NUR ---
SEEN BY HOSPITALIST AND HAND THERMAL CUTTER WITH ORDERS, CLEAN CATCH URINE SENT FOR CULTURE
--- NOTE | 2018-02-01 11:56 | NUR ---
STARTED ON ROCEPHIN WILL WATCH FOR REACTION
[2018-02-01 13:37] LABS: *CREATININE,URINE 76.7 mg/dL (30-125)
[2018-02-01 13:41] LABS: *BILIRUBIN,URIN NEGATIVE (NEGATIVE); *BLOOD, URINE 1+ (NEGATIVE); *CLARITY,URINE CLOUDY (CLEAR); *COLOR,URINE YELLOW (YELLOW); *KETONES,URINE NEGATIVE (NEGATIVE); *PROTEIN,URINE NEGATIVE (NEGATIVE); *UROBILINOGEN,URINE 0.2 E.U./dl (NORMAL); LEUKOCYTE ESTERASE ,URINE 3+ (NEGATIVE); NITRITE, URINE NEGATIVE (NEGATIVE); UGLUCOSE NEGATIVE (NEGATIVE)
[2018-02-01 14:36] LABS: BACTERIA,URINE MANY /HPF (NONE SEEN); RBC,URINE 0-3 /HPF (0-3); SQUAMOUS EPITHELIAL CELL,UR MANY /HPF (NONE SEEN); WBC,URINE TNTC /HPF (0-3)
[2018-02-01 15:20] VITALS: BP 98/46
--- NOTE | 2018-02-01 17:06 | NUR ---
STILL AWAITING LEFT FOOT X-RAY, CONTINUE WITH PAIN MANAGEMENT
[2018-02-01 19:46] VITALS: BP 103/59
[2018-02-01] MEDS: SIMVASTATIN 40 MG TABLET PO SCH (21:22)
[2018-02-01] MEDS: DOCUSATE SODIUM 100 MG CAPSULE PO SCH (21:22)
[2018-02-01] MEDS: ZOLPIDEM 5 MG TABLET PO PRN (21:36)
--- NOTE | 2018-02-02 02:15 | NUR ---
ATTEMPTING TO WALK TO BATHROOM. PATIENTS LEGS GAVE WAY, PATIENT SCRAPPED HER BACK ON THE WALL, SHE SLID TO FLOOR. SEE PHOTO.
[2018-02-02] MEDS: MORPHINE SULFATE 4 MG/1 ML DISP.SYRIN IV PRN ×2 (02:30→21:31)
[2018-02-02 04:00] VITALS: BP 124/96
[2018-02-02] MEDS: PANTOPRAZOLE SODIUM 40 MG TABLET.DR PO SCH (06:19)
[2018-02-02] MEDS: BLOOD SUGAR DIAGNOSTIC 1 EACH STRIP VI SCH ×4 (06:49→21:06)
[2018-02-02 06:59] LABS: BILIRUBIN,TOTAL 0.3 mg/dL (0.2-1.0); CREATININE 1.7 mg/dL (0.6-1.3); MAGNESIUM 1.8 mg/dL (1.8-2.4); PHOSPHOROUS 4.6 mg/dL (2.5-4.9); POTASSIUM 4.8 mmol/L (3.5-5.1)
[2018-02-02 07:09] LABS: THYROID STIMULATING HORMONE 2.253 mIU/mL (0.358-3.740)
[2018-02-02 07:22] LABS: BASOPHILS # (AUTO) 0.1 K/uL (0.0-8.0); BASOPHILS % (AUTO) 0.8 % (0.0-2.0); EOSINOPHILS # (AUTO) 0.4 K/uL (0.0-0.7); EOSINOPHILS % (AUTO) 3.1 % (0.0-7.0); HEMATOCRIT 33.7 % (31.2-41.9); HEMOGLOBIN 11.5 g/dL (10.9-14.3); LYMPHOCYTES # (AUTO) 1.6 K/uL (20.0-40.0); LYMPHOCYTES % (AUTO) 14.2 % (20.5-51.5); MEAN CORPUSCULAR HEMOGLOBIN 29.9 uug (24.7-32.8); MEAN CORPUSCULAR HGB CONC 34 g/dL (32.3-35.6); MEAN CORPUSCULAR VOLUME 87.9 fL (75.5-95.3); MONOCYTES # (AUTO) 0.7 K/uL (2.0-10.0); MONOCYTES % (AUTO) 5.9 % (0.0-11.0); NEUTROPHILS # (AUTO) 8.6 K/uL (1.8-8.9); PLATELET COUNT (AUTO) 216 K/uL (179-408); RED BLOOD CELL COUNT(AUTO) 3.83 MIL/uL (3.63-4.92)
[2018-02-02 07:31] LABS: WHITE BLOOD COUNT (AUTO) 11.4 K/uL (3.8-11.8)
[2018-02-02] MEDS: INSULIN REGULAR, HUMAN 300 UNIT/3 ML VIAL SQ PRN ×2 (07:39→11:34)
[2018-02-02] MEDS: GABAPENTIN 300 MG CAPSULE PO SCH ×2 (08:02→16:18)
[2018-02-02] MEDS: ASPIRIN 81 MG TAB.CHEW PO SCH (08:02)
[2018-02-02] MEDS: AMITRIPTYLINE HCL 50 MG TABLET PO SCH ×2 (08:03→16:18)
[2018-02-02] MEDS: GLIMEPIRIDE 4 MG TABLET PO SCH ×2 (08:03→17:02)
[2018-02-02 11:06] VITALS: BP 108/78
[2018-02-02] MEDS: CEFTRIAXONE 1 G in IV DEXTROSE 5% 50 ML IV SCH (11:49)
[2018-02-02] MEDS: IV NS 1000 ML 1,000 ML IV PRN (12:24)
[2018-02-02 15:15] VITALS: BP 109/73
[2018-02-02] MEDS: MUPIROCIN 2% OINT 22 GM TUBE NS SCH ×2 (15:15→21:05)
--- NOTE | 2018-02-02 19:46 | NUR ---
OBSERVED TO BE RESTING IN BED. BED IN LOW, LOCKED POSITION. SIDE RAILS UP X2. BED ALARM ON. CALL LIGHT WITHIN REACH. WILL CONTINUE TO MONITOR.
[2018-02-02 20:00] VITALS: BP 122/72
[2018-02-02] MEDS: DOCUSATE SODIUM 100 MG CAPSULE PO SCH (21:06)
[2018-02-02] MEDS: SIMVASTATIN 40 MG TABLET PO SCH (21:06)
[2018-02-02] MEDS: ACETAMINOPHEN 325 MG TABLET PO PRN (21:06)
[2018-02-03] MEDS: MORPHINE SULFATE 4 MG/1 ML DISP.SYRIN IV PRN ×6 (00:38→20:44)
[2018-02-03 04:00] VITALS: BP 113/50
--- NOTE | 2018-02-03 06:00 | NUR ---
INTERMITTENT CONFUSION NOTED THROUGHOUT THE NIGHT, REORIENTATION PROVIDED. RASHID CARE AND BACK CARE ENDURED. PAIN MANAGEMENT PROVIDED. VITAL SIGNS WNL. BED IN LOW, LOCKED POSITION. BED ALARM ON. CALL LIGHT WITHIN REACH.
[2018-02-03] MEDS: BLOOD SUGAR DIAGNOSTIC 1 EACH STRIP VI SCH ×4 (06:31→20:34)
[2018-02-03] MEDS: PANTOPRAZOLE SODIUM 40 MG TABLET.DR PO SCH (06:31)
--- NOTE | 2018-02-03 07:15 | NUR ---
Received pt in no immediate distress, discomfort or SOB. Pt is sleeping
[2018-02-03 07:18] LABS: BASOPHILS % (AUTO) 0.5 % (0.0-2.0); EOSINOPHILS # (AUTO) 0.4 K/uL (0.0-0.7); EOSINOPHILS % (AUTO) 5.2 % (0.0-7.0); HEMATOCRIT 32.6 % (31.2-41.9); HEMOGLOBIN 10.9 g/dL (10.9-14.3); LYMPHOCYTES # (AUTO) 1.9 K/uL (20.0-40.0); LYMPHOCYTES % (AUTO) 27.5 % (20.5-51.5); MEAN CORPUSCULAR HEMOGLOBIN 29.5 uug (24.7-32.8); MEAN CORPUSCULAR HGB CONC 33 g/dL (32.3-35.6); MEAN CORPUSCULAR VOLUME 88.7 fL (75.5-95.3); MONOCYTES # (AUTO) 0.5 K/uL (2.0-10.0); MONOCYTES % (AUTO) 7.4 % (0.0-11.0); NEUTROPHILS % (AUTO) 59.4 % (38.5-71.5); PLATELET COUNT (AUTO) 216 K/uL (179-408); RED BLOOD CELL COUNT(AUTO) 3.68 MIL/uL (3.63-4.92)
[2018-02-03 07:26] LABS: WHITE BLOOD COUNT (AUTO) 6.8 K/uL (3.8-11.8)
[2018-02-03 08:01] LABS: BILIRUBIN,TOTAL 0.1 mg/dL (0.2-1.0); CREATININE 1.4 mg/dL (0.6-1.3); MAGNESIUM 1.9 mg/dL (1.8-2.4); PHOSPHOROUS 3.9 mg/dL (2.5-4.9); POTASSIUM 4.7 mmol/L (3.5-5.1); TOTAL PROTEIN, SERUM 6.9 g/dL (6.4-8.2)
[2018-02-03] MEDS: GLIMEPIRIDE 4 MG TABLET PO SCH ×2 (08:04→17:51)
[2018-02-03] MEDS: GABAPENTIN 300 MG CAPSULE PO SCH ×2 (08:34→17:52)
[2018-02-03] MEDS: AMITRIPTYLINE HCL 50 MG TABLET PO SCH ×2 (08:34→17:52)
[2018-02-03] MEDS: ASPIRIN 81 MG TAB.CHEW PO SCH (08:35)
[2018-02-03] MEDS: MUPIROCIN 2% OINT 22 GM TUBE NS SCH ×2 (08:38→20:34)
[2018-02-03 11:17] VITALS: BP 117/55
[2018-02-03] MEDS: CEFTRIAXONE 1 G in IV DEXTROSE 5% 50 ML IV SCH (12:12)
[2018-02-03] MEDS: INSULIN REGULAR, HUMAN 300 UNIT/3 ML VIAL SQ PRN (12:20)
[2018-02-03] MEDS: IV NS 1000 ML 1,000 ML IV PRN (13:42)
[2018-02-03] MEDS: CEPHALEXIN MONOHYDRATE 500 MG CAPSULE PO SCH ×2 (14:20→21:34)
[2018-02-03] MEDS: ACETAMINOPHEN 325 MG TABLET PO PRN (14:20)
[2018-02-03 15:05] VITALS: BP 113/56
[2018-02-03] MEDS ORDERED: VITAMIN E CREAM 56.7 GM JAR TP PRN (16:00)
[2018-02-03] MEDS ORDERED: POLYVINYL ALCOHOL OPHT DROPS 15 ML BOTTLE EACHEYE PRN (16:00)
--- NOTE | 2018-02-03 18:30 | NUR ---
Pt has been complaint with nursing care and medication. No immediate s/s of pain, distress, discomfort or SOB.
[2018-02-03 20:00] VITALS: BP 147/66
--- NOTE | 2018-02-03 20:00 | NUR ---
RECEIVED PATIENT AWAKE IN BED. A/O X4. ON ISOLATION FOR MRSA NARES. NO C/O PAIN OR DISCOMFORT AT THIS TIME. NO RESP. DISTRESS NOTED. ON O2 2L NC. IVF INFUSING WELL TO LEFT FA #20 GAUGE. CALL LIGHT IN REACH. ALL NEEDS ATTENDED. BED ALARM ON. WILL CONTINUE TO MONITOR.
[2018-02-03] MEDS: DOCUSATE SODIUM 100 MG CAPSULE PO SCH (20:34)
[2018-02-03] MEDS: SIMVASTATIN 40 MG TABLET PO SCH (20:34)
[2018-02-03] MEDS: INSULIN REGULAR, HUMAN 300 UNITS/3 ML VIAL SQ PRN (20:37)
[2018-02-03] MEDS: ZOLPIDEM 5 MG TABLET PO PRN (21:34)
--- NOTE | 2018-02-03 21:35 | NUR ---
PATIENT GIVEN AMBIEN 5MG PO PRN FOR SLEEP. BED ALARM ON. WILL CONTINUE TO MONITOR.
--- NOTE | 2018-02-03 23:00 | NUR ---
PATIENT ASLEEP. NO RESP. DISTRESS NOTED. BED ALARM ON. CALL LIGHT IN REACH. ALL NEEDS ATTENDED.
--- NOTE | 2018-02-03 23:30 | NUR ---
REPORT GIVEN TO RN.
--- NOTE | 2018-02-04 01:43 | NUR ---
PT BED ALARM WENT ON, NOTED SITTING AT THE EDGE OF THE BED. REFUSED TO LAY BACK DOWN IN BED AND REFUSED TO HAVE BED ALARM TURN BACK ON. GETTING UPSET AND TELLING TEST RIDER TO GET OUT OF HER ROOM. INSTRUCTED TEST RIDER TO STAY ON PT LINE OF SIGHT TO MONITOR FOR SAFETY. PT GOT MORE UPSET AND WANTED TO LEAVE AMA. AFTER TALKING TO HER CALMLY AND EDUCATING HER ABOUT HER SAFETY, PT CALM DOWN AND DECIDED TO STAY. NEEDS ATTENDED TO. ASSISTED TO REPOSITION IN BED. BED ALARM ON AND ON LOCK POSITION. SAFETY MEASURE MAINTAINED. REMINDED TO USE THE CALL BLACKMON FOR ANY NEEDS AND STATES UNDERSTANDING.
[2018-02-04] MEDS: MORPHINE SULFATE 4 MG/1 ML DISP.SYRIN IV PRN ×7 (01:56→22:59)
--- NOTE | 2018-02-04 04:44 | NUR ---
PT COMPLAIN OF CRAMPING ON LEFT UPPER THIGH. WARM COMPRESS APPLIED AND EFFECTIVE. ALSO GIVEN MORPHINE PER ORDER FOR PAIN.
[2018-02-04 05:32] VITALS: BP 115/63
[2018-02-04] MEDS: CEPHALEXIN MONOHYDRATE 500 MG CAPSULE PO SCH ×3 (06:11→21:00)
[2018-02-04] MEDS: PANTOPRAZOLE SODIUM 40 MG TABLET.DR PO SCH (06:11)
[2018-02-04] MEDS: BLOOD SUGAR DIAGNOSTIC 1 EACH STRIP VI SCH ×4 (06:30→20:52)
--- NOTE | 2018-02-04 06:37 | NUR ---
AOX4. PAIN ON LLE TOLERABLE AT THIS TIME. NO SOB. O2 SAT AT 94% ON RA. IN NO ACUTE DISTRESS. IV SITE ON LA FA INTACT AND PATENT. IVF INFUSING. NEEDS ATTENDED TO AND MET. CONTACT PRECAUTION OBSERVED. SAFETY MEASURE MAINTAINED AND CALL BLACKMON WITHIN REACH.
--- NOTE | 2018-02-04 08:00 | NUR ---
Discussed plan of care with patient re: fall precautions and pain management. Pt agreeable with plan of care. Call light is within reach.
[2018-02-04] MEDS: GLIMEPIRIDE 4 MG TABLET PO SCH ×2 (08:11→16:14)
[2018-02-04] MEDS: GABAPENTIN 300 MG CAPSULE PO SCH ×2 (08:11→16:10)
[2018-02-04] MEDS: ASPIRIN 81 MG TAB.CHEW PO SCH (08:11)
[2018-02-04] MEDS: AMITRIPTYLINE HCL 50 MG TABLET PO SCH ×2 (08:11→16:11)
[2018-02-04] MEDS: INSULIN REGULAR, HUMAN 300 UNIT/3 ML VIAL SQ PRN ×2 (08:13→16:21)
[2018-02-04] MEDS: MUPIROCIN 2% OINT 22 GM TUBE NS SCH ×2 (08:14→21:03)
--- NOTE | 2018-02-04 10:00 | NUR ---
Assessed left foot. Pt able to wiggle toes and fell sensation . Boot intact. Bruising noted on toes. Elevated legs. Offered to apply some ice for pain management - pt refused.
[2018-02-04 12:00] VITALS: BP 119/65
[2018-02-04 16:05] VITALS: BP 108/52
--- NOTE | 2018-02-04 18:30 | NUR ---
Pt refused to have IVF to be run. "if its just water, I ve been drinking water through out the day - so i dont need it plus it gets in the way." Per pts rights NS stopped per pts request. Encouraged pt to continue to drink.
--- NOTE | 2018-02-04 18:51 | NUR ---
Plan of care effective. Pt's pain managed with morphine. Fall precaution plan effective - no fall noted this shift.
[2018-02-04] MEDS: IV NS 1000 ML 1,000 ML IV PRN (18:56)
--- NOTE | 2018-02-04 19:30 | NUR ---
Pt present sitting a the side on the bed. AAOx4. In no acute distress. Complained pain on her right foot. Will give Morphine PRN per order. IV site on left FA intact and patent. Safety measure initiated and call richard within reached.
--- NOTE | 2018-02-04 19:35 | NUR ---
pt continue to refused IV Fluids. Stated she is drinking well and does not need it. Continue to hold IVF per pt. request.
[2018-02-04 20:00] VITALS: BP 140/72
[2018-02-04] MEDS: INSULIN REGULAR, HUMAN 300 UNITS/3 ML VIAL SQ PRN (20:52)
[2018-02-04] MEDS: SIMVASTATIN 40 MG TABLET PO SCH (20:53)
[2018-02-04] MEDS: DOCUSATE SODIUM 100 MG CAPSULE PO SCH (20:54)
[2018-02-04] MEDS: ZOLPIDEM 5 MG TABLET PO PRN (22:58)
[2018-02-05] MEDS: MORPHINE SULFATE 4 MG/1 ML DISP.SYRIN IV PRN ×6 (02:31→19:54)
[2018-02-05 04:00] VITALS: BP 141/76
[2018-02-05] MEDS: CEPHALEXIN MONOHYDRATE 500 MG CAPSULE PO SCH ×2 (05:13→13:02)
[2018-02-05] MEDS: ACETAMINOPHEN 325 MG TABLET PO PRN (05:13)
--- NOTE | 2018-02-05 06:05 | NUR ---
AAOX4. In no acute distress. O2 sat at 96% on RA. IV site on LFA intact and patent. Still no IVF per pt request. Safety measure maintained and call richard within reach.
[2018-02-05] MEDS: PANTOPRAZOLE SODIUM 40 MG TABLET.DR PO SCH (06:39)
[2018-02-05] MEDS: BLOOD SUGAR DIAGNOSTIC 1 EACH STRIP VI SCH ×4 (06:40→20:26)
--- NOTE | 2018-02-05 07:10 | NUR ---
Received report from [facility] shift lead nurse, patient in bed asleep, no distress noted at this time, bed in low position, side rails up x2.
[2018-02-05] MEDS: GLIMEPIRIDE 4 MG TABLET PO SCH ×2 (08:04→17:34)
[2018-02-05] MEDS: GABAPENTIN 300 MG CAPSULE PO SCH ×2 (08:04→16:50)
[2018-02-05] MEDS: AMITRIPTYLINE HCL 50 MG TABLET PO SCH ×2 (08:04→16:50)
[2018-02-05] MEDS: ASPIRIN 81 MG TAB.CHEW PO SCH (08:09)
[2018-02-05] MEDS: MUPIROCIN 2% OINT 22 GM TUBE NS SCH ×2 (08:10→20:26)
[2018-02-05 08:42] LABS: BASOPHILS % (AUTO) 0.7 % (0.0-2.0); EOSINOPHILS # (AUTO) 0.4 K/uL (0.0-0.7); EOSINOPHILS % (AUTO) 6.3 % (0.0-7.0); HEMATOCRIT 33.3 % (31.2-41.9); HEMOGLOBIN 11.3 g/dL (10.9-14.3); LYMPHOCYTES # (AUTO) 1.8 K/uL (20.0-40.0); LYMPHOCYTES % (AUTO) 26.9 % (20.5-51.5); MEAN CORPUSCULAR HEMOGLOBIN 29.9 uug (24.7-32.8); MEAN CORPUSCULAR HGB CONC 34 g/dL (32.3-35.6); MEAN CORPUSCULAR VOLUME 88.4 fL (75.5-95.3); MONOCYTES # (AUTO) 0.5 K/uL (2.0-10.0); MONOCYTES % (AUTO) 7.5 % (0.0-11.0); NEUTROPHILS # (AUTO) 3.9 K/uL (1.8-8.9); NEUTROPHILS % (AUTO) 58.6 % (38.5-71.5); PLATELET COUNT (AUTO) 262 K/uL (179-408); RED BLOOD CELL COUNT(AUTO) 3.77 MIL/uL (3.63-4.92); WHITE BLOOD COUNT (AUTO) 6.7 K/uL (3.8-11.8)
[2018-02-05 08:49] LABS: BILIRUBIN,TOTAL 0.3 mg/dL (0.2-1.0); CREATININE 1.3 mg/dL (0.6-1.3); MAGNESIUM 1.7 mg/dL (1.8-2.4); PHOSPHOROUS 4.2 mg/dL (2.5-4.9); POTASSIUM 4.6 mmol/L (3.5-5.1); TOTAL PROTEIN, SERUM 7.4 g/dL (6.4-8.2)
[2018-02-05 11:59] VITALS: BP 101/47
--- NOTE | 2018-02-05 12:00 | NUR ---
Patient requested to see social worker palliative careTerri notified. Please follow up with notes.
[2018-02-05] MEDS: MAGNESIUM SULFATE/D5W 100 ML IV SCH ×2 (14:38→15:57)
[2018-02-05 16:10] VITALS: BP 124/67
[2018-02-05] MEDS: INSULIN REGULAR, HUMAN 300 UNIT/3 ML VIAL SQ PRN (17:37)
--- NOTE | 2018-02-05 18:40 | NUR ---
PATIENT HAS BEEN COOPERATIVE WITH CARE, PATIENT HAD BREAKTHROUGH PAIN EVERY 3 HOURS REQUIRING PAIN MEDICATION. CURRENTLY PATIENT IN BED AWAKE, NO DISTRESS NOTED, BED IN LOW POSITION, SIDE RIALS UPX2.
--- NOTE | 2018-02-05 19:10 | NUR ---
RECEIVED PT'S SITTING ON BED,DENIED OF PAIN OR ANY DISCOMFORT.PT HAD A ORTHOPEDIC SHOE ON THE LEFT FOOT DUE TO NONDISPLACED Fx OF 2ND-5TH TOES. HAD ORDER TO D/C PT HOME AT 18:45;EDUCATED TO PT;PT STATED THAT"I'M NOT HAPPY ABOUT THIS ORDER.I DON'T WANT TO GO HOME.I LIVE WITH MY SISTER AND HER AT [place] BUT I DON'T WANT TO CALL HER AT THIS TIME.I WANT TO TALK TO YOUR BOSS ABOUT IT".CAMERON/HEAD BANQUET WAITRESS'S NOTIFIED AND AWARE AND WILL COME TO TALK TO PT KIM..KEPT COMFORT AND EDUCATED TO PT TO GO BACK TO BED.BED ALARM'S ON.
--- NOTE | 2018-02-05 19:50 | NUR ---
PT CALLED AND STATED THAT"IS IT DUE TIME FOR MY MORPHINE?,I HAVE PAIN ALL OVER MY BODY,I NEED MORPHINE". AT 19:54 MORPHINE 2 MG IVP X1 ORDER;EDUCATED TO PT ABOUT THE BENEFIT AND S/E OF MORPHINE;PT VERBALIZED UNDERSTANDING AND COOPERATIVE.BED ALARM'S ON FOR FALL PREVENTION. AT 20:30;PT CALLED AND STATED THAT "I NEED TO EAT SOME JELLO AND PUDDING,GIVE ME 2 EACH PLEASE".;HER NEED'S MET.PT TOLERATED WELL. AT 20:45;PT CALLED AND STATED THAT" NURSE,I'M SO SORRY ABOUT MY NASTY THAT TI TALKED TO YOU EARLY.I DON'T MEAN THAT WAY BUT I WANT TO LET YOU KNOW THAT I DON'T WANT TO GO HOME.I APPRECIATE ALL YOU GAVE TO ME".KEPT COMFORT.CALL-LIGHT WITHIN REACH.BED ALARM'S ON.SENT MARIAH/PAUL TO HELP PT FOR PM CARE AT THE BEDSIDE. AT 20:50:CAMERON/MODELING TEACHER WENT TO TALK TO PT PER PT REQUESTED.
[2018-02-05 20:00] VITALS: BP 118/69
[2018-02-05] MEDS: DOCUSATE SODIUM 100 MG CAPSULE PO SCH (20:27)
[2018-02-05] MEDS: SIMVASTATIN 40 MG TABLET PO SCH (20:27)
--- NOTE | 2018-02-05 21:00 | NUR ---
SNACK'S GIVEN TO PT AFTER BLOOD SUGAR CHECK;PT ATE 100%;NO N/V WAS SEEN.PT DENIED OF PAIN OR ANY DISCOMFORT.
--- NOTE | 2018-02-05 21:10 | NUR ---
PT CALLED AND STATED THAT "DO YOU STILL WANT ME TO GO HOME TONIGHT.I ALREADY TALKED TO YOUR BOSS AND SHE TOLD ME THAT DOCTOR HAD ORDER FOR ME TO GO HOME.I CAN CALL [facility] TO PICK ME UP ANYTIME";CAMERON/MARGO NURSE'S NOTIFIED ABOUT IT AND SHE SPOKE TO ELECTRIC TRUCK DRIVER;WE'LL ARRANGE TAXI VOUCHER PER ELECTRIC TRUCK DRIVER. EXPLAINED TO PT REGARDING A TAXI VOUCHER AND PT STATED THAT"DON'T WORRY ABOUT IT AND I WILL CALL MY SISTER TO PICK ME UP HERE.IT'S NOT GOING TO TAKE LONG TIME BECAUSE SHE LIVES CLOSED TO HOSPITAL". PREPARED A D/C INSTRUCTION TO PT;ALL QUESTIONS WERE ANSWERED;PT SIGNED A ND VERBALIZED UNDERSTANDING,STATED THAT "DO I NEED TO FOLLOW UP WITH MY DOCTOR?. I HAVE ONE IN [place] AND I HAVE AN APPOINTMENT TO SEE HER IN THE NEXT 2 MONTHS";EDUCATED TO PT TO CALL HER PCP AND ARRANGE A NEW APPOINTMENT TO SEE PCP IN A FEW DAYS AFTER D/C HOME;PT VERBALIZED UNDERSTANDING AND COOPERATIVE AT THIS TIME.CAMERON/CNC OPERATOR'S AWARE ABOUT PT'S SISTER WILL PICK HER UP KIM.
--- NOTE | 2018-02-05 21:50 | NUR ---
PT'S SENT HOME BY HER PRIVATE CAR;PT'S SISTER WHO CAME TO CABINETMAKER HELPER.PT'S SISTER STATED THAT"I'M NOT HAPPY THAT YOU SEND PT HOME AT THIS TIME";EDUCATED TO HER THAT WE HAD ORDER AROUND 7 PM ALLYSSA/MOLYBDENUM STEAMER OPERATOR CAME TO HELP ME TO TALK TO PT AND HER SISTER. PT'S SENT DOWN TO THE FIRST FLOOR,ACCOMPANIED BY PT'S SISTER AND SENT VIA WHEELCHAIR BY MARIAH/PAUL.NO ACUTE DISTRESS UPON THIS TIME NOTED.PT DENIED OF PAIN,STABLE CONDITION AND V/S.NO VALUABLE BELONGING LEFT AT THE BEDSIDE NOTED.
[2018-02-07 12:11] LABS: A/G RATIO 0.9 (0.7-1.7); ALBUMIN 2.9 g/dL (2.9-4.4); ALPHA-1-GLOBULIN 0.2 g/dL (0.0-0.4); ALPHA-2-GLOBULIN 0.6 g/dL (0.4-1.0); BETA GLOBULIN 1.2 g/dL (0.7-1.3); GLOBULIN, TOTAL 3.1 g/dL (2.2-3.9); M-SPIKE Not Observed g/dL (Not Observed)
== END 2018-02-05 21:50 | disposition home or self-care (01) | DRG 463 ==
LOC: ER 15:16 → TELE 18:25 → MED 02-01 20:15
PROVIDERS: ADMIT Internal Medicine; ATTEND Internal Medicine
DX: N39.0 Urinary tract infection, site not specified (principal); N17.0 Acute kidney failure with tubular necrosis; S92.515A Nondisplaced fracture of proximal phalanx of left lesser toe(s), initial encounter for closed fracture; I50.32 Chronic diastolic (congestive) heart failure; I13.0 Hypertensive heart and chronic kidney disease with heart failure and stage 1 through stage 4 chronic kidney disease, or unspecified chronic kidney disease; E11.22 Type 2 diabetes mellitus with diabetic chronic kidney disease; E44.0 Moderate protein-calorie malnutrition; E11.65 Type 2 diabetes mellitus with hyperglycemia; E11.42 Type 2 diabetes mellitus with diabetic polyneuropathy; E03.9 Hypothyroidism, unspecified; W19.XXXA Unspecified fall, initial encounter; Y93.9 Activity, unspecified; Y92.009 Unspecified place in unspecified non-institutional (private) residence as the place of occurrence of the external cause; E66.01 Morbid (severe) obesity due to excess calories; N18.9 Chronic kidney disease, unspecified; E78.5 Hyperlipidemia, unspecified; E83.39 Other disorders of phosphorus metabolism; E87.1 Hypo-osmolality and hyponatremia; E87.5 Hyperkalemia; F32.9 Major depressive disorder, single episode, unspecified; Z87.442 Personal history of urinary calculi; Z87.440 Personal history of urinary (tract) infections; Z87.891 Personal history of nicotine dependence; R29.6 Repeated falls; Z86.73 Personal history of transient ischemic attack (TIA), and cerebral infarction without residual deficits; F41.9 Anxiety disorder, unspecified; Z86.14 Personal history of Methicillin resistant Staphylococcus aureus infection; Z79.891 Long term (current) use of opiate analgesic; S20.219A Contusion of unspecified front wall of thorax, initial encounter; B96.1 Klebsiella pneumoniae [K. pneumoniae] as the cause of diseases classified elsewhere; R07.89 Other chest pain; G89.29 Other chronic pain; I44.0 Atrioventricular block, first degree; M19.90 Unspecified osteoarthritis, unspecified site; Z79.84 Long term (current) use of oral hypoglycemic drugs
CPT/HCPCS: 36415; 70030-TC; 70450; 71045; 73030; 73620; 83605; 83735; 83970; 84100; 84155; 84156; 84165; 84300; 84443; 85025; 85610; 87077; 87086; 93005; 93307; 97110; 97165; 97530; A4663; J0696; J1815; J1885; J2270; J2405; J3475; J7030; J7050; J7060

== ENCOUNTER 2018-06-25 06:34 | Inpatient (IN) | payer OTHER ==
[~2018-06-25] VITALS: Ht 154.9 cm; Wt 112.9 kg
[~2018-06-25 06:34] MED LIST changes: -ACID1TAB4 PO; -Blood Sugar Diagnostic VI; -CLON0.1T14 PO; -CODEINE; -FAMO20TA8 PO; -INSU100V28 SQ; -METO25TA6 PO; -PROMETHAZINE
[2018-06-25 07:01] LABS: *BILIRUBIN,URIN NEGATIVE (NEGATIVE); *BLOOD, URINE 3+ (NEGATIVE); *CLARITY,URINE SLIGHTLY CLOUDY (CLEAR); *COLOR,URINE YELLOW (YELLOW); *KETONES,URINE TRACE (NEGATIVE); *PROTEIN,URINE 3+ (NEGATIVE); *UROBILINOGEN,URINE 0.2 E.U./dl (NORMAL); LEUKOCYTE ESTERASE ,URINE 2+ (NEGATIVE); NITRITE, URINE NEGATIVE (NEGATIVE); UGLUCOSE NEGATIVE (NEGATIVE)
[2018-06-25 07:11] LABS: BACTERIA,URINE MODERATE /HPF (NONE SEEN); SQUAMOUS EPITHELIAL CELL,UR FEW /HPF (NONE SEEN); WBC,URINE TNTC /HPF (0-3)
[2018-06-25] MEDS ORDERED: GENTAMICIN SULFATE INJ 80 MG in IV DEXTROSE 5% 100 ML IV ONE (07:15)
[2018-06-25] MEDS ORDERED: LEVOFLOXACIN 750MG/D5W 150 ML IV ONE ×2 (07:15→08:06)
[2018-06-25] MEDS ORDERED: IV NORMAL SALINE 1000 ML BAG IV ONE (07:15)
--- NOTE | 2018-06-25 07:15 | NUR ---
received overweight patient, she is AOx4, respiration:easy c/o fever for a day w/chills, decreased appetite & generalized body malaise, MD ASTON is at bedside.
[2018-06-25 07:37] LABS: BASOPHILS % (AUTO) 0.2 % (0.0-2.0); EOSINOPHILS # (AUTO) 0.2 K/uL (0.0-0.7); EOSINOPHILS % (AUTO) 1.2 % (0.0-7.0); HEMATOCRIT 38.7 % (31.2-41.9); LYMPHOCYTES # (AUTO) 0.7 K/uL (20.0-40.0); LYMPHOCYTES % (AUTO) 4.1 % (20.5-51.5); MEAN CORPUSCULAR HEMOGLOBIN 30.3 uug (24.7-32.8); MEAN CORPUSCULAR HGB CONC 34 g/dL (32.3-35.6); MEAN CORPUSCULAR VOLUME 90.1 fL (75.5-95.3); MONOCYTES # (AUTO) 0.8 K/uL (2.0-10.0); MONOCYTES % (AUTO) 4.6 % (0.0-11.0); NEUTROPHILS # (AUTO) 14.9 K/uL (1.8-8.9); NEUTROPHILS % (AUTO) 89.9 % (38.5-71.5); PLATELET COUNT (AUTO) 233 K/uL (179-408); WHITE BLOOD COUNT (AUTO) 16.6 K/uL (3.8-11.8)
[2018-06-25 07:43] LABS: CREATININE 1.6 mg/dL (0.6-1.3); POTASSIUM 4.3 mmol/L (3.5-5.1)
[2018-06-25 08:00] LABS: BILIRUBIN,DIRECT 0.2 mg/dL (0.0-0.2); BILIRUBIN,TOTAL 0.6 mg/dL (0.2-1.0); TOTAL PROTEIN, SERUM 8.1 g/dL (6.4-8.2)
--- NOTE | 2018-06-25 08:06 | NUR ---
Patient is seen frequently using her cellphone, NAD, telemetry bed & nurse were requested from 2nd floor offline cutter Merlie
[2018-06-25] MEDS ORDERED: LORAZEPAM 2 MG/1 ML VIAL IV ONE (08:30)
[2018-06-25] MEDS ORDERED: LORAZEPAM 2 MG/1 ML VIAL ONE (08:52)
--- NOTE | 2018-06-25 10:14 | NUR ---
IV bolus is still infusing enroute to floor, endorsed to nurse Jodi accordingly
[2018-06-25 10:20] VITALS: BP 153/98
--- NOTE | 2018-06-25 10:58 | NUR ---
62 YEAR OLD FEMALE ADMITTED TO ROOM 216 FOR UTI .V/S ARE STABLE CALL LIGHT WITH IN REACH MD CALLED FOR ADMISSION ORDERS.
[2018-06-25] MEDS ORDERED: ZOLPIDEM 5 MG TABLET PO PRN (12:00)
[2018-06-25] MEDS ORDERED: ONDANSETRON 4 MG/2 ML VIAL IV PRN (12:00)
[2018-06-25] MEDS ORDERED: MAGNESIUM HYDROXIDE 30 ML LIQUID UDC PO PRN (12:00)
[2018-06-25] MEDS ORDERED: Z GUARD REMEDY PASTE 57 GM TUBE TOP PRN (12:00)
[2018-06-25] MEDS ORDERED: DEXTROSE 50% 50 ML DISP.SYRIN IV PRN (12:00)
[2018-06-25] MEDS ORDERED: IV NS 1000 ML 1,000 ML IV PRN (13:30)
[2018-06-25] MEDS: HYDROCODONE/APAP 5-325MG TABLET PO PRN (14:05)
[2018-06-25] MEDS: ALBUTEROL SULFATE 2.5 MG/3 ML NEBU NEB PRN (14:53)
[2018-06-25] MEDS: IPRATROPIUM BROMIDE 0.5 MG/2.5 ML NEBU NEB PRN (14:53)
[2018-06-25] MEDS: LORAZEPAM 2 MG/1 ML VIAL IV PRN ×2 (15:23→20:20)
[2018-06-25] MEDS: ACETAMINOPHEN 325 MG TABLET PO PRN (15:27)
[2018-06-25 15:45] VITALS: BP 119/50
[2018-06-25] MEDS: GABAPENTIN 300 MG CAPSULE PO SCH (16:21)
[2018-06-25] MEDS: AMITRIPTYLINE HCL 50 MG TABLET PO SCH (16:21)
[2018-06-25] MEDS: BLOOD SUGAR DIAGNOSTIC 1 EACH STRIP VI SCH ×2 (16:39→20:16)
[2018-06-25] MEDS: INSULIN REGULAR, HUMAN 300 UNIT/3 ML VIAL SQ PRN ×2 (16:41→20:19)
[2018-06-25 20:00] VITALS: BP 116/69
--- NOTE | 2018-06-25 20:00 | NUR ---
Received patient laying comfortably in bed. No acute distress noted. Denies pain and SOB. Vital signs stable. A/O x 3. On O2 2L NC. TELE SR. Lungs clear. No wheezing present. Safety initiated. Call light within reach. Bed in low and locked position. Room is clutter free. Will continue to monitor.
[2018-06-25] MEDS: SIMVASTATIN 40 MG TABLET PO SCH (20:14)
[2018-06-25] MEDS: INSULIN GLARGINE,HUM 300 UNITS/3 ML CARTRIDGE SQ SCH (20:17)
[2018-06-25] MEDS: ENOXAPARIN SODIUM 40 MG/0.4 ML DISP.SYRIN SQ SCH (20:18)
[2018-06-26 00:10] VITALS: BP 112/78
[2018-06-26 04:00] VITALS: BP 109/57
[2018-06-26] MEDS: LORAZEPAM 2 MG/1 ML VIAL IV PRN ×3 (05:14→18:13)
--- NOTE | 2018-06-26 05:47 | NUR ---
Patient slept intermittently t/o shift. Patient remains A/O x 3, talks to herself. C/O being anxious. Meds given. O2 2L NC. TELE SR. Vital signs stable. Good urine output. Patient is able to ambulate to the rest room with minimal assist. Bed bath provided. Tolerated well. Safety and comfort measures maintained t/o shift. All meds given as ordered. All needs met. Will continue to monitor.
[2018-06-26 06:00] LABS: BASOPHILS # (AUTO) 0.1 K/uL (0.0-8.0); BASOPHILS % (AUTO) 0.5 % (0.0-2.0); EOSINOPHILS # (AUTO) 0.2 K/uL (0.0-0.7); EOSINOPHILS % (AUTO) 1.3 % (0.0-7.0); HEMATOCRIT 33.6 % (31.2-41.9); HEMOGLOBIN 11.3 g/dL (10.9-14.3); LYMPHOCYTES # (AUTO) 1.8 K/uL (20.0-40.0); LYMPHOCYTES % (AUTO) 13.9 % (20.5-51.5); MEAN CORPUSCULAR HEMOGLOBIN 30.6 uug (24.7-32.8); MEAN CORPUSCULAR HGB CONC 34 g/dL (32.3-35.6); MEAN CORPUSCULAR VOLUME 91.1 fL (75.5-95.3); MONOCYTES # (AUTO) 1.1 K/uL (2.0-10.0); MONOCYTES % (AUTO) 8.6 % (0.0-11.0); NEUTROPHILS # (AUTO) 9.8 K/uL (1.8-8.9); NEUTROPHILS % (AUTO) 75.7 % (38.5-71.5); PLATELET COUNT (AUTO) 188 K/uL (179-408); RED BLOOD CELL COUNT(AUTO) 3.69 MIL/uL (3.63-4.92); WHITE BLOOD COUNT (AUTO) 12.9 K/uL (3.8-11.8)
[2018-06-26] MEDS: PANTOPRAZOLE SODIUM 40 MG TABLET.DR PO SCH (06:03)
[2018-06-26 06:36] LABS: CREATININE 1.3 mg/dL (0.6-1.3); MAGNESIUM 1.8 mg/dL (1.8-2.4); PHOSPHOROUS 2.9 mg/dL (2.5-4.9); POTASSIUM 4.1 mmol/L (3.5-5.1)
[2018-06-26] MEDS: BLOOD SUGAR DIAGNOSTIC 1 EACH STRIP VI SCH ×4 (06:40→20:15)
[2018-06-26 06:46] LABS: THYROID STIMULATING HORMONE 1.793 mIU/mL (0.358-3.740)
--- NOTE | 2018-06-26 07:20 | NUR ---
Received report from machinist 2nd shift nurse, patient in bed asleep, no distress noted at this time, bed in low position, side rails up x2, bed alarm on.
[2018-06-26] MEDS ORDERED: LEVOFLOXACIN 750MG/D5W 750 MG in PREMIXED 1 EACH IV SCH (08:00)
[2018-06-26] MEDS: AMITRIPTYLINE HCL 50 MG TABLET PO SCH ×2 (08:24→17:06)
[2018-06-26] MEDS: GABAPENTIN 300 MG CAPSULE PO SCH ×2 (08:26→17:06)
[2018-06-26] MEDS: INSULIN REGULAR, HUMAN 300 UNIT/3 ML VIAL SQ PRN ×4 (08:27→20:16)
[2018-06-26 11:48] VITALS: BP 108/58
[2018-06-26] MEDS ORDERED: FUROSEMIDE 40 MG/4 ML VIAL IV ONE (15:00)
[2018-06-26 15:28] VITALS: BP 106/55
--- NOTE | 2018-06-26 18:40 | NUR ---
Patient was cooperative with care, occasionally was forgetful about receiving medications and asks for them again. Patient is currently in bed, no distress noted at this time, bed in low position, side rails up x2.
--- NOTE | 2018-06-26 19:20 | NUR ---
RECEIVED PT AWAKE, ALERT, ORIENTEDX3. PT SHOWS NO SIGNS OF DISTRESS. PT IV INTACT AND PATENT. SAFETY AND COMFORT PROVIDED. WILL CONTINUE TO MONITOR.
[2018-06-26 20:00] VITALS: BP 142/78
[2018-06-26] MEDS: SIMVASTATIN 40 MG TABLET PO SCH (20:02)
[2018-06-26] MEDS: ACETAMINOPHEN 325 MG TABLET PO PRN (20:03)
[2018-06-26] MEDS: INSULIN GLARGINE,HUM 300 UNITS/3 ML CARTRIDGE SQ SCH (20:07)
[2018-06-26] MEDS: ENOXAPARIN SODIUM 40 MG/0.4 ML DISP.SYRIN SQ SCH (20:09)
[2018-06-27] VITALS: BP 110/68
[2018-06-27] MEDS: LORAZEPAM 2 MG/1 ML VIAL IV PRN ×4 (02:08→22:22)
[2018-06-27 04:00] VITALS: BP 150/88
--- NOTE | 2018-06-27 06:07 | NUR ---
PT SLEPT THROUGHOUT THE SHIFT. PT SHOWS NO SIGNS OF DISTRESS. PT IV INTACT AND PATENT. PRESCRIBED MEDICATION GIVEN AND PT TOLERATED IT WELL.PT STABLE. PT WAS GIVEN ATIVAN PER PT REQUEST. SAFETY AND COMFORT PROVIDED. WILL ENDORSE TO INCOMING NURSE FOR CONTINUITY OF CARE.
[2018-06-27] MEDS: PANTOPRAZOLE SODIUM 40 MG TABLET.DR PO SCH (06:10)
[2018-06-27 06:35] LABS: BASOPHILS % (AUTO) 0.5 % (0.0-2.0); EOSINOPHILS # (AUTO) 0.1 K/uL (0.0-0.7); EOSINOPHILS % (AUTO) 1.8 % (0.0-7.0); HEMATOCRIT 33.9 % (31.2-41.9); HEMOGLOBIN 11.6 g/dL (10.9-14.3); LYMPHOCYTES # (AUTO) 1.2 K/uL (20.0-40.0); LYMPHOCYTES % (AUTO) 15.2 % (20.5-51.5); MEAN CORPUSCULAR HEMOGLOBIN 30.2 uug (24.7-32.8); MEAN CORPUSCULAR HGB CONC 34 g/dL (32.3-35.6); MONOCYTES # (AUTO) 0.8 K/uL (2.0-10.0); MONOCYTES % (AUTO) 10.6 % (0.0-11.0); NEUTROPHILS # (AUTO) 5.5 K/uL (1.8-8.9); NEUTROPHILS % (AUTO) 71.9 % (38.5-71.5); PLATELET COUNT (AUTO) 197 K/uL (179-408); RED BLOOD CELL COUNT(AUTO) 3.85 MIL/uL (3.63-4.92); WHITE BLOOD COUNT (AUTO) 7.7 K/uL (3.8-11.8)
[2018-06-27 06:41] LABS: CREATININE 1.2 mg/dL (0.6-1.3); POTASSIUM 3.4 mmol/L (3.5-5.1)
[2018-06-27] MEDS: BLOOD SUGAR DIAGNOSTIC 1 EACH STRIP VI SCH ×4 (07:29→20:39)
--- NOTE | 2018-06-27 07:30 | NUR ---
Received pt sleeping, easily arousable to name. No immediate s/sx of SOB, pain, distress or disocmfort noted. Bed at lowest position for safety and call light within reach for assistance.
[2018-06-27] MEDS ORDERED: LEVOFLOXACIN 750MG/D5W 750 MG in PREMIXED 1 EACH IV SCH (08:00)
[2018-06-27] MEDS: GABAPENTIN 300 MG CAPSULE PO SCH ×2 (08:14→16:20)
[2018-06-27] MEDS: AMITRIPTYLINE HCL 50 MG TABLET PO SCH ×2 (08:14→16:20)
[2018-06-27] MEDS: INSULIN REGULAR, HUMAN 300 UNIT/3 ML VIAL SQ PRN ×4 (08:17→20:42)
--- NOTE | 2018-06-27 08:20 | NUR ---
Pt compliant with morning medications. Pt is able to verbalize her needs
[2018-06-27 11:18] VITALS: BP 121/82
[2018-06-27] MEDS: HYDROCODONE/APAP 5-325MG TABLET PO PRN ×2 (11:53→20:57)
[2018-06-27] MEDS ORDERED: POTASSIUM CHLORIDE 20 MEQ TAB.PRT.SR PO ONE (12:30)
[2018-06-27 15:16] VITALS: BP 131/75
[2018-06-27] MEDS: GUAIFENESIN/CODEINE 5 ML LIQUID UDC PO PRN ×2 (15:50→22:24)
--- NOTE | 2018-06-27 16:09 | NUR ---
Pt alert and oriented times 4, pt request Ativan, diet soda and crackers. Items provided for the pt.
--- NOTE | 2018-06-27 19:49 | NUR ---
Pt observed to be resting in bed at this time, easily arousable to verbal and tactile stimuli. No s/s of acute distress. Safe environment implemented. Call light within reach. Will continue to monitor closely.
[2018-06-27 20:00] VITALS: BP 99/63
[2018-06-27] MEDS: INSULIN GLARGINE,HUM 300 UNITS/3 ML CARTRIDGE SQ SCH (20:42)
[2018-06-27] MEDS: SIMVASTATIN 40 MG TABLET PO SCH (20:43)
[2018-06-27] MEDS: ENOXAPARIN SODIUM 40 MG/0.4 ML DISP.SYRIN SQ SCH (20:43)
[2018-06-28 04:44] VITALS: BP 95/56
[2018-06-28] MEDS: LORAZEPAM 2 MG/1 ML VIAL IV PRN ×3 (05:33→20:25)
[2018-06-28] MEDS: GUAIFENESIN/CODEINE 5 ML LIQUID UDC PO PRN ×3 (05:55→20:25)
[2018-06-28 06:07] LABS: BASOPHILS % (AUTO) 0.7 % (0.0-2.0); EOSINOPHILS # (AUTO) 0.2 K/uL (0.0-0.7); EOSINOPHILS % (AUTO) 3.4 % (0.0-7.0); HEMATOCRIT 33.1 % (31.2-41.9); HEMOGLOBIN 11.2 g/dL (10.9-14.3); LYMPHOCYTES # (AUTO) 1.6 K/uL (20.0-40.0); LYMPHOCYTES % (AUTO) 25.3 % (20.5-51.5); MEAN CORPUSCULAR HGB CONC 34 g/dL (32.3-35.6); MEAN CORPUSCULAR VOLUME 88.5 fL (75.5-95.3); MONOCYTES # (AUTO) 0.9 K/uL (2.0-10.0); MONOCYTES % (AUTO) 14.3 % (0.0-11.0); NEUTROPHILS # (AUTO) 3.6 K/uL (1.8-8.9); NEUTROPHILS % (AUTO) 56.3 % (38.5-71.5); PLATELET COUNT (AUTO) 210 K/uL (179-408); RED BLOOD CELL COUNT(AUTO) 3.74 MIL/uL (3.63-4.92); WHITE BLOOD COUNT (AUTO) 6.3 K/uL (3.8-11.8)
[2018-06-28] MEDS: PANTOPRAZOLE SODIUM 40 MG TABLET.DR PO SCH (06:21)
[2018-06-28 06:25] LABS: CREATININE 1.4 mg/dL (0.6-1.3); POTASSIUM 4.3 mmol/L (3.5-5.1)
[2018-06-28] MEDS: BLOOD SUGAR DIAGNOSTIC 1 EACH STRIP VI SCH ×4 (06:27→20:24)
--- NOTE | 2018-06-28 06:40 | NUR ---
Pt compliant with all care. No s/s of acute distress, no SOB at this time.
[2018-06-28] MEDS: LEVOFLOXACIN 750MG/D5W 750 MG in PREMIXED 1 EACH IV SCH (07:45)
[2018-06-28] MEDS: INSULIN REGULAR, HUMAN 300 UNIT/3 ML VIAL SQ PRN ×4 (07:48→20:29)
[2018-06-28] MEDS: GABAPENTIN 300 MG CAPSULE PO SCH ×2 (08:00→16:03)
[2018-06-28] MEDS: AMITRIPTYLINE HCL 50 MG TABLET PO SCH ×2 (08:00→16:03)
[2018-06-28 11:20] VITALS: BP 109/64
[2018-06-28 15:30] VITALS: BP 104/54
--- NOTE | 2018-06-28 16:12 | NUR ---
Pt given a diet soda and crackers as requested
--- NOTE | 2018-06-28 18:57 | NUR ---
Pt has been compliant with medications and nursing care. No immediate s/sx of SOB, pain, distress or discomfort. Pt mostly slept throughout the day. Will endorse to next shift orders for urine to be collected
--- NOTE | 2018-06-28 19:35 | NUR ---
Observed to be resting in bed at this time with no s/s of acute distress noted at this time, easily arousable via verbal and tactile stimuli. Safe environment implemented. Call light within reach.
[2018-06-28 20:00] VITALS: BP 123/78
[2018-06-28] MEDS: SIMVASTATIN 40 MG TABLET PO SCH (20:24)
[2018-06-28] MEDS: ENOXAPARIN SODIUM 40 MG/0.4 ML DISP.SYRIN SQ SCH (20:29)
[2018-06-28] MEDS: INSULIN GLARGINE,HUM 300 UNITS/3 ML CARTRIDGE SQ SCH (20:30)
[2018-06-29 02:30] LABS: *BILIRUBIN,URIN NEGATIVE (NEGATIVE); *BLOOD, URINE 1+ (NEGATIVE); *CLARITY,URINE CLEAR (CLEAR); *COLOR,URINE YELLOW (YELLOW); *KETONES,URINE NEGATIVE (NEGATIVE); *PROTEIN,URINE NEGATIVE (NEGATIVE); *UROBILINOGEN,URINE 0.2 E.U./dl (NORMAL); LEUKOCYTE ESTERASE ,URINE TRACE (NEGATIVE); NITRITE, URINE NEGATIVE (NEGATIVE); PH,URINE 5.5 (5.0-8.0); UGLUCOSE NEGATIVE (NEGATIVE)
[2018-06-29] MEDS: LORAZEPAM 2 MG/1 ML VIAL IV PRN ×3 (02:39→15:41)
[2018-06-29] MEDS: GUAIFENESIN/CODEINE 5 ML LIQUID UDC PO PRN ×3 (02:39→15:41)
[2018-06-29] MEDS: ALBUTEROL SULFATE 2.5 MG/3 ML NEBU NEB PRN ×3 (02:47→17:26)
[2018-06-29] MEDS: IPRATROPIUM BROMIDE 0.5 MG/2.5 ML NEBU NEB PRN ×3 (02:48→17:26)
[2018-06-29 02:50] LABS: BACTERIA,URINE NONE SEEN /HPF (NONE SEEN); SQUAMOUS EPITHELIAL CELL,UR FEW /HPF (NONE SEEN)
[2018-06-29 04:27] VITALS: BP 139/75
[2018-06-29 05:35] LABS: BASOPHILS % (AUTO) 0.5 % (0.0-2.0); EOSINOPHILS # (AUTO) 0.2 K/uL (0.0-0.7); EOSINOPHILS % (AUTO) 3.2 % (0.0-7.0); HEMOGLOBIN 11.5 g/dL (10.9-14.3); LYMPHOCYTES # (AUTO) 1.7 K/uL (20.0-40.0); LYMPHOCYTES % (AUTO) 24.5 % (20.5-51.5); MEAN CORPUSCULAR HEMOGLOBIN 29.9 uug (24.7-32.8); MEAN CORPUSCULAR HGB CONC 34 g/dL (32.3-35.6); MEAN CORPUSCULAR VOLUME 88.5 fL (75.5-95.3); MONOCYTES % (AUTO) 14.2 % (0.0-11.0); NEUTROPHILS % (AUTO) 57.6 % (38.5-71.5); PLATELET COUNT (AUTO) 230 K/uL (179-408); RED BLOOD CELL COUNT(AUTO) 3.85 MIL/uL (3.63-4.92); WHITE BLOOD COUNT (AUTO) 6.9 K/uL (3.8-11.8)
[2018-06-29 05:40] LABS: CREATININE 1.3 mg/dL (0.6-1.3); POTASSIUM 4.1 mmol/L (3.5-5.1)
[2018-06-29] MEDS: PANTOPRAZOLE SODIUM 40 MG TABLET.DR PO SCH (06:24)
[2018-06-29] MEDS: BLOOD SUGAR DIAGNOSTIC 1 EACH STRIP VI SCH ×3 (06:28→16:23)
--- NOTE | 2018-06-29 06:39 | NUR ---
Pt intermittently confused and constantly asking for Ativan. Reorientation and redirection provided. Safe environment implemented at all times. Call light within reach.
--- NOTE | 2018-06-29 07:45 | NUR ---
Received pt sleeping,easily arousable to sound. No immediate s/sx of SOB, pain, distress or discomfort noted. Bed at lowest position for safety and call light within reach. Pt is requesting soda at time time, encouraged pt to drink water or cranberry juice instead
[2018-06-29] MEDS: LEVOFLOXACIN 750MG/D5W 750 MG in PREMIXED 1 EACH IV SCH (07:58)
[2018-06-29] MEDS: INSULIN REGULAR, HUMAN 300 UNIT/3 ML VIAL SQ PRN ×3 (08:02→16:26)
[2018-06-29] MEDS: GABAPENTIN 300 MG CAPSULE PO SCH ×2 (08:04→16:23)
[2018-06-29] MEDS: AMITRIPTYLINE HCL 50 MG TABLET PO SCH ×2 (08:05→16:23)
[2018-06-29 11:22] VITALS: BP 106/44
[2018-06-29 15:34] VITALS: BP 140/76
--- NOTE | 2018-06-29 18:56 | NUR ---
Pt has been discharged with orders from GROCERY CLERK SELLING Oscar. Pharmacist consult took place with Ion. Informed pt the importance of following up with PCP and supervisor salvage both within a week of being discharge. Pt stated she understood and would follow up with both appointments. ID and IV line both removed. Pt had verbalized to GROCERY CLERK SELLING and Emergency Medicine Physician she wanted to stay another night. VS stable, noted with Sinus Tachy since admission. Pt stated that she would be taking UBER however then stated her sister Daniella would pick her up. Assisted the pt getting dressed and an XL gown provided since her own cloth were unwearable at this time. Pt was able to sign personal belongings list with the BU[employer]LE AND BUTTON MAKER. Pt signed both discharged documents and copies proved. Will endorse to security shift supervisor nurse that pt has been discharge and is just waiting for her sister.
[2018-06-29 19:00] VITALS: BP 111/66
--- NOTE | 2018-06-29 19:20 | NUR ---
rECEIVED PT AWAKE, ALERT, ORIENTEDX4. PT SHOWS NO SIGNS OF DISTRESS. PT TO BE DISCHARGE. SGE IS JUST WAITING FOR HER SISTER TO PICK HER UP. ID BAND TAKEN OF. PT STABLE.
--- NOTE | 2018-06-29 20:25 | NUR ---
PT DISCHARGED VIA WHEELCHAIR.KEY HOLDER WITH HER AND HER SISTER. PT ID BAND TAKEN OFF. PT STABLE WITH NO ACUTE DISTRESS. BELONGING LIST DONE. DISCHARGE PACKET GIVEN TO HER AND VERBALIZED UNDERSTANDING FOR INSTRUCTION.
== END 2018-06-29 20:25 | disposition home or self-care (01) | DRG 720 ==
LOC: ER 06:39 → TELE 10:06 → MED 06-27 14:51
PROVIDERS: ADMIT Hospitalist; ATTEND Hospitalist
DX: A41.9 Sepsis, unspecified organism (principal); N17.0 Acute kidney failure with tubular necrosis; I50.33 Acute on chronic diastolic (congestive) heart failure; E87.2 Acidosis; N39.0 Urinary tract infection, site not specified; R65.20 Severe sepsis without septic shock; B96.20 Unspecified Escherichia coli [E. coli] as the cause of diseases classified elsewhere; Z16.11 Resistance to penicillins; E11.65 Type 2 diabetes mellitus with hyperglycemia; M19.041 Primary osteoarthritis, right hand; Z90.49 Acquired absence of other specified parts of digestive tract; E11.22 Type 2 diabetes mellitus with diabetic chronic kidney disease; N18.9 Chronic kidney disease, unspecified; E66.01 Morbid (severe) obesity due to excess calories; Z68.42 Body mass index [BMI] 45.0-49.9, adult; E11.42 Type 2 diabetes mellitus with diabetic polyneuropathy; Z87.891 Personal history of nicotine dependence; Z87.442 Personal history of urinary calculi; Z87.440 Personal history of urinary (tract) infections; Z79.891 Long term (current) use of opiate analgesic; K42.9 Umbilical hernia without obstruction or gangrene; F41.9 Anxiety disorder, unspecified; F32.9 Major depressive disorder, single episode, unspecified; D63.8 Anemia in other chronic diseases classified elsewhere; E78.5 Hyperlipidemia, unspecified; Z86.73 Personal history of transient ischemic attack (TIA), and cerebral infarction without residual deficits; I13.0 Hypertensive heart and chronic kidney disease with heart failure and stage 1 through stage 4 chronic kidney disease, or unspecified chronic kidney disease; E86.0 Dehydration; M19.012 Primary osteoarthritis, left shoulder; M19.011 Primary osteoarthritis, right shoulder; E87.6 Hypokalemia; R60.0 Localized edema; J42 Unspecified chronic bronchitis; K76.0 Fatty (change of) liver, not elsewhere classified; I70.8 Atherosclerosis of other arteries
CPT/HCPCS: 36415; 70030-TC; 71045; 83605; 83735; 84100; 84443; 85025; 85730; 87040; 87077; 87086; 93005; 94640; 94664; A4663; J1580; J1650; J1815; J1940; J1956; J2060; J3590; J7030; J7040; J7060

== ENCOUNTER 2018-07-01 13:37 | Inpatient (IN) | payer OTHER ==
[~2018-07-01] VITALS: Ht 162.6 cm; Wt 120.2 kg
[~2018-07-01 13:37] MED LIST changes: -HYDR-3326 PO; -MAGN400O6 PO; -ZOLP5TAB8 PO
--- NOTE | 2018-07-01 13:40 | NUR ---
ADMIT FEMALE PT TO RM 2A FROM HOME VIA PARAMEDICS. PT IS AWAKE AND ORIENTEDX3. CHIEF C/O SOB AND WEAKNESS.
[2018-07-01] MEDS ORDERED: SWABABLE VALVE TRANSFER SET EA MC ONE (13:51)
[2018-07-01] MEDS ORDERED: IV NORMAL SALINE 250 ML IV ONE (13:51)
[2018-07-01] MEDS ORDERED: IOHEXOL 350 100 ML INFUS..BTL ONE (13:51)
[2018-07-01 14:19] LABS: BASOPHILS # (AUTO) 0.1 K/uL (0.0-8.0); BASOPHILS % (AUTO) 1.1 % (0.0-2.0); EOSINOPHILS # (AUTO) 0.2 K/uL (0.0-0.7); EOSINOPHILS % (AUTO) 2.9 % (0.0-7.0); HEMATOCRIT 33.4 % (31.2-41.9); HEMOGLOBIN 11.3 g/dL (10.9-14.3); LYMPHOCYTES # (AUTO) 1.3 K/uL (20.0-40.0); LYMPHOCYTES % (AUTO) 15.7 % (20.5-51.5); MEAN CORPUSCULAR HEMOGLOBIN 30.1 uug (24.7-32.8); MEAN CORPUSCULAR HGB CONC 34 g/dL (32.3-35.6); MEAN CORPUSCULAR VOLUME 89.3 fL (75.5-95.3); MONOCYTES # (AUTO) 0.5 K/uL (2.0-10.0); MONOCYTES % (AUTO) 6.2 % (0.0-11.0); NEUTROPHILS # (AUTO) 6.3 K/uL (1.8-8.9); NEUTROPHILS % (AUTO) 74.1 % (38.5-71.5); PLATELET COUNT (AUTO) 277 K/uL (179-408); RED BLOOD CELL COUNT(AUTO) 3.75 MIL/uL (3.63-4.92); WHITE BLOOD COUNT (AUTO) 8.5 K/uL (3.8-11.8)
[2018-07-01] MEDS ORDERED: LOSARTAN PO (14:19)
[2018-07-01] MEDS ORDERED: ATEN50TA PO (14:19)
[2018-07-01 14:48] LABS: CREATININE 1.4 mg/dL (0.6-1.3); POTASSIUM 4.1 mmol/L (3.5-5.1)
[2018-07-01 14:51] LABS: BILIRUBIN,DIRECT 0.1 mg/dL (0.0-0.2); BILIRUBIN,TOTAL 0.4 mg/dL (0.2-1.0); TOTAL PROTEIN, SERUM 7.6 g/dL (6.4-8.2)
[2018-07-01] MEDS ORDERED: ACETAMINOPHEN 325 MG TABLET PO PRN (15:30)
[2018-07-01] MEDS ORDERED: ONDANSETRON 4 MG/2 ML VIAL IV PRN (15:30)
[2018-07-01] MEDS ORDERED: LORAZEPAM 0.5 MG TABLET PO ONE (15:30)
[2018-07-01] MEDS ORDERED: DEXTROSE 50% 50 ML DISP.SYRIN IV PRN (15:30)
[2018-07-01] MEDS ORDERED: IPRATROPIUM BROMIDE 0.5 MG/2.5 ML NEBU NEB PRN (15:30)
[2018-07-01] MEDS ORDERED: ALBUTEROL SULFATE 2.5 MG/3 ML NEBU NEB PRN (15:30)
[2018-07-01] MEDS ORDERED: LORAZEPAM 0.5 MG TABLET ONE (15:40)
--- NOTE | 2018-07-01 16:30 | NUR ---
CTA OF CHEST DONE ORDERED.
--- NOTE | 2018-07-01 16:30 | NUR ---
PT IS BEING ADMITTED TO [facility] [place]. RM ASSIGNED IS [id number]. REPORT GIVEN TO GAGNA GARCÍA.
--- NOTE | 2018-07-01 16:55 | NUR ---
PT IS TRANSFERRED TO 218 VIA GURNEY. CONDITION IS STABLE. HEPLOCK ON RIGHT AC IN PLACE.
[2018-07-01 17:09] VITALS: BP 130/51
--- NOTE | 2018-07-01 17:24 | NUR ---
62 YEAR OLD FEMALE RECEIVED FROM ER VIA [facility] FOR SOB IN STABLE CONDITION.V/S ARE STABLE MD NOTIFIED FOR THE ADMISSION ORDERS,
[2018-07-01] MEDS: BLOOD SUGAR DIAGNOSTIC 1 EACH STRIP VI SCH ×2 (17:30→20:55)
[2018-07-01] MEDS: ASPIRIN EC 81 MG TABLET.DR PO SCH (17:30)
[2018-07-01] MEDS: GLIMEPIRIDE 4 MG TABLET PO SCH (17:36)
[2018-07-01] MEDS: IV NS 1000 ML 1,000 ML IV PRN (17:36)
[2018-07-01 17:48] LABS: *BILIRUBIN,URIN NEGATIVE (NEGATIVE); *BLOOD, URINE Trace-intact (NEGATIVE); *CLARITY,URINE CLEAR (CLEAR); *COLOR,URINE YELLOW (YELLOW); *KETONES,URINE NEGATIVE (NEGATIVE); *PROTEIN,URINE NEGATIVE (NEGATIVE); *UROBILINOGEN,URINE 0.2 E.U./dl (NORMAL); LEUKOCYTE ESTERASE ,URINE TRACE (NEGATIVE); NITRITE, URINE NEGATIVE (NEGATIVE); UGLUCOSE NEGATIVE (NEGATIVE)
[2018-07-01] MEDS: AZITHROMYCIN IV 500 MG in IV DEXTROSE 5% 250 ML IV SCH (17:54)
[2018-07-01 18:05] LABS: SQUAMOUS EPITHELIAL CELL,UR FEW /HPF (NONE SEEN)
[2018-07-01 19:00] VITALS: BP 105/55
--- NOTE | 2018-07-01 20:00 | NUR ---
Pt observed to be sitting up in bed, AAO x 3. No s/s of acute distress. Made aware of plan of care. Safe environment implemented. Call light within reach.
[2018-07-01] MEDS: SIMVASTATIN 40 MG TABLET PO SCH (20:48)
[2018-07-01] MEDS: AMITRIPTYLINE HCL 50 MG TABLET PO SCH (20:49)
[2018-07-01] MEDS: GABAPENTIN 300 MG CAPSULE PO SCH (20:49)
[2018-07-01] MEDS: ATENOLOL 50 MG TABLET PO SCH (20:55)
[2018-07-01] MEDS: GUAIFENESIN/CODEINE 5 ML LIQUID UDC PO PRN (22:07)
[2018-07-02 04:00] VITALS: BP 98/53
[2018-07-02] MEDS: GUAIFENESIN/CODEINE 5 ML LIQUID UDC PO PRN ×3 (05:28→22:51)
[2018-07-02] MEDS: HYDROCODONE/APAP 5-325MG TABLET PO PRN ×2 (05:31→22:47)
--- NOTE | 2018-07-02 05:51 | NUR ---
Stable condition. No SOB. All needs attended to. Call light within reach.
[2018-07-02] MEDS: PANTOPRAZOLE SODIUM 40 MG TABLET.DR PO SCH (06:11)
[2018-07-02] MEDS: BLOOD SUGAR DIAGNOSTIC 1 EACH STRIP VI SCH ×4 (06:30→20:39)
[2018-07-02 06:57] LABS: BASOPHILS # (AUTO) 0.1 K/uL (0.0-8.0); BASOPHILS % (AUTO) 1.4 % (0.0-2.0); EOSINOPHILS # (AUTO) 0.4 K/uL (0.0-0.7); EOSINOPHILS % (AUTO) 4.3 % (0.0-7.0); HEMATOCRIT 32.3 % (31.2-41.9); LYMPHOCYTES # (AUTO) 2.7 K/uL (20.0-40.0); LYMPHOCYTES % (AUTO) 30.2 % (20.5-51.5); MEAN CORPUSCULAR HEMOGLOBIN 29.8 uug (24.7-32.8); MEAN CORPUSCULAR HGB CONC 34 g/dL (32.3-35.6); MEAN CORPUSCULAR VOLUME 87.6 fL (75.5-95.3); MONOCYTES # (AUTO) 0.7 K/uL (2.0-10.0); MONOCYTES % (AUTO) 8.4 % (0.0-11.0); NEUTROPHILS % (AUTO) 55.7 % (38.5-71.5); PLATELET COUNT (AUTO) 265 K/uL (179-408); RED BLOOD CELL COUNT(AUTO) 3.69 MIL/uL (3.63-4.92); WHITE BLOOD COUNT (AUTO) 8.9 K/uL (3.8-11.8)
[2018-07-02] MEDS: INSULIN REGULAR, HUMAN 300 UNIT/3 ML VIAL SQ PRN ×3 (07:23→16:29)
[2018-07-02] MEDS: ASPIRIN EC 81 MG TABLET.DR PO SCH (08:01)
[2018-07-02] MEDS: GLIMEPIRIDE 4 MG TABLET PO SCH ×2 (08:01→17:04)
[2018-07-02] MEDS: AMITRIPTYLINE HCL 50 MG TABLET PO SCH ×2 (08:02→20:32)
[2018-07-02] MEDS: GABAPENTIN 300 MG CAPSULE PO SCH ×2 (08:02→20:32)
[2018-07-02] MEDS: ATENOLOL 50 MG TABLET PO SCH (08:02)
[2018-07-02 08:44] LABS: BILIRUBIN,TOTAL 0.3 mg/dL (0.2-1.0); CREATININE 1.4 mg/dL (0.6-1.3); MAGNESIUM 1.9 mg/dL (1.8-2.4); PHOSPHOROUS 4.5 mg/dL (2.5-4.9); POTASSIUM 4.1 mmol/L (3.5-5.1); TOTAL PROTEIN, SERUM 7.1 g/dL (6.4-8.2)
[2018-07-02 10:16] LABS: THYROID STIMULATING HORMONE 4.968 mIU/mL (0.358-3.740)
[2018-07-02 11:31] VITALS: BP 95/46
[2018-07-02] MEDS: CEFTRIAXONE 2 G in IV DEXTROSE 5% 100 ML IV SCH (12:18)
[2018-07-02] MEDS ORDERED: CEFTRIAXONE 1 G in IV DEXTROSE 5% 50 ML IV SCH (13:00)
[2018-07-02] MEDS: IV NS 1000 ML 1,000 ML IV PRN (15:56)
[2018-07-02 16:00] VITALS: BP 116/64
[2018-07-02] MEDS: AZITHROMYCIN IV 500 MG in IV DEXTROSE 5% 250 ML IV SCH (17:09)
[2018-07-02 19:30] VITALS: BP 121/46
--- NOTE | 2018-07-02 20:15 | NUR ---
Pt in bed awake, alert, c/o anxiety, Given Ativan 1 tab as requested. BG checked 86. No coverage given per sliding scale, Snacks given. Will continue to monitor.
[2018-07-02] MEDS: LORAZEPAM 0.5 MG TABLET PO PRN (20:32)
[2018-07-02] MEDS: SIMVASTATIN 40 MG TABLET PO SCH (20:32)
[2018-07-03 03:42] VITALS: BP 104/45
[2018-07-03] MEDS: PANTOPRAZOLE SODIUM 40 MG TABLET.DR PO SCH (06:08)
[2018-07-03] MEDS: IV NS 1000 ML 1,000 ML IV PRN (06:09)
[2018-07-03] MEDS: HYDROCODONE/APAP 5-325MG TABLET PO PRN ×3 (06:11→21:49)
[2018-07-03 06:55] LABS: BASOPHILS # (AUTO) 0.1 K/uL (0.0-8.0); BASOPHILS % (AUTO) 0.8 % (0.0-2.0); EOSINOPHILS # (AUTO) 0.3 K/uL (0.0-0.7); EOSINOPHILS % (AUTO) 4.2 % (0.0-7.0); HEMATOCRIT 31.2 % (31.2-41.9); HEMOGLOBIN 10.5 g/dL (10.9-14.3); LYMPHOCYTES # (AUTO) 1.9 K/uL (20.0-40.0); LYMPHOCYTES % (AUTO) 27.9 % (20.5-51.5); MEAN CORPUSCULAR HEMOGLOBIN 29.9 uug (24.7-32.8); MEAN CORPUSCULAR HGB CONC 34 g/dL (32.3-35.6); MEAN CORPUSCULAR VOLUME 88.6 fL (75.5-95.3); MONOCYTES # (AUTO) 0.6 K/uL (2.0-10.0); MONOCYTES % (AUTO) 8.7 % (0.0-11.0); NEUTROPHILS # (AUTO) 4.1 K/uL (1.8-8.9); NEUTROPHILS % (AUTO) 58.4 % (38.5-71.5); PLATELET COUNT (AUTO) 261 K/uL (179-408); RED BLOOD CELL COUNT(AUTO) 3.53 MIL/uL (3.63-4.92)
[2018-07-03 07:04] LABS: BILIRUBIN,TOTAL 0.2 mg/dL (0.2-1.0); CREATININE 1.4 mg/dL (0.6-1.3); MAGNESIUM 1.8 mg/dL (1.8-2.4); PHOSPHOROUS 3.9 mg/dL (2.5-4.9); TOTAL PROTEIN, SERUM 6.8 g/dL (6.4-8.2)
[2018-07-03] MEDS: BLOOD SUGAR DIAGNOSTIC 1 EACH STRIP VI SCH ×4 (07:30→20:26)
[2018-07-03] MEDS: ASPIRIN EC 81 MG TABLET.DR PO SCH (08:01)
[2018-07-03] MEDS: GABAPENTIN 300 MG CAPSULE PO SCH ×2 (08:01→20:26)
[2018-07-03] MEDS: GLIMEPIRIDE 4 MG TABLET PO SCH ×2 (08:01→17:01)
[2018-07-03] MEDS: AMITRIPTYLINE HCL 50 MG TABLET PO SCH ×2 (08:01→20:27)
[2018-07-03] MEDS: INSULIN REGULAR, HUMAN 300 UNIT/3 ML VIAL SQ PRN ×2 (10:40→17:00)
[2018-07-03] MEDS ORDERED: LOSA50TA21 PO (11:07)
[2018-07-03] MEDS ORDERED: CHOL20004 PO (11:08)
[2018-07-03] MEDS ORDERED: ALBU8.5H8 IH (11:08)
[2018-07-03] MEDS ORDERED: FLUT16SP NS (11:10)
[2018-07-03 11:53] VITALS: BP 135/84
[2018-07-03] MEDS: CEFTRIAXONE 2 G in IV DEXTROSE 5% 100 ML IV SCH (12:32)
[2018-07-03] MEDS ORDERED: Medication Not On Formulary EA (Cholecalciferol (Vitamin D3) (Vitamin D CAPSULE) 2,000 U PO SCH (12:45)
[2018-07-03] MEDS: FLUTICASONE PROP NASAL SPRAY 16 GM BOTTLE NS SCH (13:47)
[2018-07-03] MEDS: CHOLECALCIFEROL 1,000 UNIT TABLET PO SCH (13:47)
[2018-07-03] MEDS: LORAZEPAM 0.5 MG TABLET PO PRN ×2 (14:23→22:28)
[2018-07-03 16:03] VITALS: BP 128/63
[2018-07-03] MEDS ORDERED: AZITHROMYCIN 250 MG TABLET PO SCH (18:00)
--- NOTE | 2018-07-03 19:50 | NUR ---
Observed resting in bed, easily arousable via verbal and tactile stimuli. No s/s of acute distress noted at this time. Safe environment implemented. Call light within reach. Will continue to monitor closely.
[2018-07-03 20:00] VITALS: BP 127/65
[2018-07-03] MEDS: LACTOBACILLUS RHAMNOSUS GG 1 EACH CAPSULE PO SCH (20:29)
[2018-07-03] MEDS: SIMVASTATIN 40 MG TABLET PO SCH (20:29)
[2018-07-03] MEDS: GUAIFENESIN/CODEINE 5 ML LIQUID UDC PO PRN (20:31)
[2018-07-04] MEDS: HYDROCODONE/APAP 5-325MG TABLET PO PRN ×2 (03:57→13:13)
[2018-07-04 04:00] VITALS: BP 120/65
[2018-07-04 06:06] LABS: BASOPHILS % (AUTO) 0.7 % (0.0-2.0); EOSINOPHILS # (AUTO) 0.3 K/uL (0.0-0.7); HEMATOCRIT 31.2 % (31.2-41.9); HEMOGLOBIN 10.5 g/dL (10.9-14.3); LYMPHOCYTES # (AUTO) 1.8 K/uL (20.0-40.0); LYMPHOCYTES % (AUTO) 27.7 % (20.5-51.5); MEAN CORPUSCULAR HEMOGLOBIN 29.8 uug (24.7-32.8); MEAN CORPUSCULAR HGB CONC 34 g/dL (32.3-35.6); MEAN CORPUSCULAR VOLUME 88.7 fL (75.5-95.3); MONOCYTES # (AUTO) 0.5 K/uL (2.0-10.0); MONOCYTES % (AUTO) 7.2 % (0.0-11.0); NEUTROPHILS # (AUTO) 3.9 K/uL (1.8-8.9); NEUTROPHILS % (AUTO) 60.4 % (38.5-71.5); PLATELET COUNT (AUTO) 257 K/uL (179-408); RED BLOOD CELL COUNT(AUTO) 3.52 MIL/uL (3.63-4.92); WHITE BLOOD COUNT (AUTO) 6.5 K/uL (3.8-11.8)
[2018-07-04 06:31] LABS: BILIRUBIN,TOTAL 0.2 mg/dL (0.2-1.0); CREATININE 1.4 mg/dL (0.6-1.3); MAGNESIUM 1.8 mg/dL (1.8-2.4); POTASSIUM 4.8 mmol/L (3.5-5.1); TOTAL PROTEIN, SERUM 6.8 g/dL (6.4-8.2)
[2018-07-04] MEDS: LORAZEPAM 0.5 MG TABLET PO PRN (06:32)
[2018-07-04] MEDS: GUAIFENESIN/CODEINE 5 ML LIQUID UDC PO PRN (06:32)
[2018-07-04] MEDS: PANTOPRAZOLE SODIUM 40 MG TABLET.DR PO SCH (06:32)
[2018-07-04] MEDS: BLOOD SUGAR DIAGNOSTIC 1 EACH STRIP VI SCH ×2 (06:33→11:52)
[2018-07-04] MEDS: INSULIN REGULAR, HUMAN 300 UNIT/3 ML VIAL SQ PRN ×2 (07:42→11:51)
--- NOTE | 2018-07-04 08:11 | NUR ---
PATIENT RECEIVED AWAKE IN BED AAOX3 NO ACUTE DISTRESS NOTED. BLOOD GLUCOSE 193 3 UNITS OF REG INSULIN GIVEN, WELL TOLERATED. NO SOB NO COMPLAINTS OF PAIN/DISCOMFORT. COMFORT MEASURES PROVIDED. CALL LIGHT WITHIN REACH WILL CONTINUE TO MONITOR CLOSELY.
[2018-07-04] MEDS: LACTOBACILLUS RHAMNOSUS GG 1 EACH CAPSULE PO SCH (08:47)
[2018-07-04] MEDS: GABAPENTIN 300 MG CAPSULE PO SCH (08:47)
[2018-07-04] MEDS: ASPIRIN EC 81 MG TABLET.DR PO SCH (08:48)
[2018-07-04] MEDS: GLIMEPIRIDE 4 MG TABLET PO SCH (08:48)
[2018-07-04] MEDS: CHOLECALCIFEROL 1,000 UNIT TABLET PO SCH (08:48)
[2018-07-04] MEDS: AMITRIPTYLINE HCL 50 MG TABLET PO SCH (08:48)
[2018-07-04] MEDS: FLUTICASONE PROP NASAL SPRAY 16 GM BOTTLE NS SCH (08:53)
[2018-07-04 11:21] VITALS: BP 117/55
[2018-07-04] MEDS ORDERED: PROMETHAZINE/CODEINE 5 ML UDC PO PRN (13:30)
[2018-07-04] MEDS ORDERED: GUAIFENESIN/CODEINE 5 ML LIQUID UDC PO PRN (13:45)
[2018-07-04] MEDS ORDERED: GUAI5SYR4 PO (15:04)
[2018-07-04] MEDS ORDERED: ACET325T53 PO (15:04)
[2018-07-04] MEDS ORDERED: LORA0.5T48 PO (15:04)
[2018-07-04] MEDS ORDERED: AZIT250T13 PO (15:04)
[2018-07-04] MEDS ORDERED: ASPI-618 PO (15:04)
[2018-07-04] MEDS ORDERED: LACT1CAP57 PO (15:04)
[2018-07-04] MEDS ORDERED: PANT40TA2 PO (15:04)
[2018-07-04] MEDS ORDERED: INSU100V28 SQ (15:04)
[2018-07-04] MEDS ORDERED: ALBU2.5V7 NEB (15:04)
[2018-07-04] MEDS ORDERED: Blood Sugar Diagnostic VI (15:04)
[2018-07-04] MEDS ORDERED: IPRA0.2S6 NEB (15:04)
[2018-07-04] MEDS ORDERED: CHOL10002 PO (15:04)
[2018-07-04] MEDS ORDERED: HYDR-3326 PO (15:04)
[2018-07-04 15:20] VITALS: BP 119/65
--- NOTE | 2018-07-04 17:02 | NUR ---
PAT[facility]. REPORT CALLED TO ESVIN GARCÍA. DISCHARGE PAPERS AND INSTRUCTIONS EXPLAINED TO PATIENT. ID BAND REMOVED BELONGINGS LIST COMPLETED AND SIGNED. LEFT HOSPITAL VIA AMBULANCE
== END 2018-07-04 17:05 | DRG 145 ==
LOC: ER 13:40 → MED 16:41
PROVIDERS: ADMIT Internal Medicine; ATTEND Internal Medicine
DX: J40 Bronchitis, not specified as acute or chronic (principal); N17.0 Acute kidney failure with tubular necrosis; N39.0 Urinary tract infection, site not specified; E11.22 Type 2 diabetes mellitus with diabetic chronic kidney disease; E11.42 Type 2 diabetes mellitus with diabetic polyneuropathy; E44.0 Moderate protein-calorie malnutrition; I13.0 Hypertensive heart and chronic kidney disease with heart failure and stage 1 through stage 4 chronic kidney disease, or unspecified chronic kidney disease; I50.32 Chronic diastolic (congestive) heart failure; E66.01 Morbid (severe) obesity due to excess calories; E03.9 Hypothyroidism, unspecified; Z68.42 Body mass index [BMI] 45.0-49.9, adult; Z71.3 Dietary counseling and surveillance; Z87.891 Personal history of nicotine dependence; N18.9 Chronic kidney disease, unspecified; D64.9 Anemia, unspecified; Z86.14 Personal history of Methicillin resistant Staphylococcus aureus infection; E78.5 Hyperlipidemia, unspecified; R29.6 Repeated falls; K76.0 Fatty (change of) liver, not elsewhere classified; F32.9 Major depressive disorder, single episode, unspecified; F41.9 Anxiety disorder, unspecified; E11.65 Type 2 diabetes mellitus with hyperglycemia; G89.29 Other chronic pain; Z79.891 Long term (current) use of opiate analgesic; Z86.73 Personal history of transient ischemic attack (TIA), and cerebral infarction without residual deficits; Z87.442 Personal history of urinary calculi; Z87.81 Personal history of (healed) traumatic fracture; G31.84 Mild cognitive impairment of uncertain or unknown etiology
CPT/HCPCS: 36415; 70030-TC; 71045; 71275; 83605; 83735; 84100; 84443; 84481; 85025; 85730; 87040; 87086; 93005; 97110; 97116; 97165; 97530; J0456; J0696; J1815; J3535; J7030; J7050; J7060; Q0144; Q9967

== ENCOUNTER 2018-12-22 21:44 | Emergency (ER) | payer OTHER ==
[~2018-12-22] VITALS: Ht 162.6 cm; Wt 113.4 kg
[~2018-12-22 21:44] MED LIST changes: +ALBU2.5V7 NEB; +ASPI-618 PO; +ATEN50TA PO; +AZIT250T13 PO; +Blood Sugar Diagnostic VI; +CHOL10002 PO; +CHOL20004 PO; +FLUT16SP NS; +GUAI5SYR4 PO; +HYDR-3326 PO; +INSU100V28 SQ; +IPRA0.2S6 NEB; +LACT1CAP57 PO; +LORA0.5T48 PO; +PANT40TA2 PO; -VENTOLIN HFA INH W/DOS CTR 200
--- NOTE | 2018-12-22 21:55 | NUR ---
Pt. ambulated into ED w/ c/o increasing periumbilical discomfort x 2 weeks, cough w/ purulent ledesma d/c x 2 weeks, and foul smelling red tinged urine x 1 day, abd. s/r/distended - pt. reports navel has begun to protrude and open up, denies SEVERINO/F/C/N/V/D/SOB, A/Ox4,
--- NOTE | 2018-12-22 22:25 | NUR ---
Rad. tech at bedside for CXR
[2018-12-22 22:30] LABS: BASOPHILS # (AUTO) 0.1 K/uL (0.0-8.0); BASOPHILS % (AUTO) 0.7 % (0.0-2.0); EOSINOPHILS # (AUTO) 0.1 K/uL (0.0-0.7); EOSINOPHILS % (AUTO) 1.4 % (0.0-7.0); HEMOGLOBIN 13.2 g/dL (10.9-14.3); LYMPHOCYTES # (AUTO) 2.5 K/uL (20.0-40.0); LYMPHOCYTES % (AUTO) 23.4 % (20.5-51.5); MEAN CORPUSCULAR HEMOGLOBIN 29.9 uug (24.7-32.8); MEAN CORPUSCULAR HGB CONC 34 g/dL (32.3-35.6); MEAN CORPUSCULAR VOLUME 88.2 fL (75.5-95.3); MONOCYTES # (AUTO) 0.7 K/uL (2.0-10.0); NEUTROPHILS # (AUTO) 7.1 K/uL (1.8-8.9); NEUTROPHILS % (AUTO) 67.5 % (38.5-71.5); PLATELET COUNT (AUTO) 236 K/uL (179-408); RED BLOOD CELL COUNT(AUTO) 4.43 MIL/uL (3.63-4.92); WHITE BLOOD COUNT (AUTO) 10.5 K/uL (3.8-11.8)
--- NOTE | 2018-12-22 22:34 | NUR ---
Pt. up to attempt urine specimen - walked w/ steady gait, unable to give urine at this time,
[2018-12-22 22:37] LABS: CREATININE 1.8 mg/dL (0.6-1.3); POTASSIUM 4.2 mmol/L (3.5-5.1)
[2018-12-22] MEDS ORDERED: ALBUTEROL SULFATE 2.5 MG/3 ML NEBU NEB ONE (22:45)
[2018-12-22 22:49] LABS: BILIRUBIN,DIRECT 0.1 mg/dL (0.0-0.2); BILIRUBIN,TOTAL 0.3 mg/dL (0.2-1.0); TOTAL PROTEIN, SERUM 8.3 g/dL (6.4-8.2)
--- NOTE | 2018-12-22 22:49 | NUR ---
Called RT for breathing tx,
--- NOTE | 2018-12-22 22:53 | NUR ---
RT at bedside for tx,
[2018-12-22] MEDS ORDERED: ALBUTEROL SULFATE 2.5 MG/3 ML NEBU ONE (22:54)
--- NOTE | 2018-12-22 23:15 | NUR ---
Urine specimen collected and sent to lab, dark yellow urine w/ minimal red streaks noted,
[2018-12-22 23:21] LABS: *BILIRUBIN,URIN NEGATIVE (NEGATIVE); *BLOOD, URINE 2+ (NEGATIVE); *COLOR,URINE YELLOW (YELLOW); *KETONES,URINE TRACE (NEGATIVE); *UROBILINOGEN,URINE 0.2 E.U./dl (NORMAL); LEUKOCYTE ESTERASE ,URINE TRACE (NEGATIVE); NITRITE, URINE NEGATIVE (NEGATIVE); PH,URINE 5.5 (5.0-8.0); UGLUCOSE NEGATIVE (NEGATIVE)
[2018-12-22 23:47] LABS: *CLARITY,URINE HAZY (CLEAR)
[2018-12-22 23:48] LABS: BACTERIA,URINE FEW /HPF (NONE SEEN); RBC,URINE 20-50 /HPF (0-3); SQUAMOUS EPITHELIAL CELL,UR FEW /HPF (NONE SEEN)
--- NOTE | 2018-12-23 00:02 | NUR ---
Patient discharged to home in stable conditon. Written and verbal after care instructions given. Patient verbalizes understanding of instructions. Pt. d/c w/ prescription per MD order, d/c papers signed, all belongings w/ pt., ID band removed, ambulated out of unit w/ steady gait, left in private vehicle, NAD,
== END 2018-12-23 00:12 | disposition home or self-care (01) ==
LOC: ER 21:44
DX: J20.9 Acute bronchitis, unspecified (principal); R31.29 Other microscopic hematuria; N28.9 Disorder of kidney and ureter, unspecified; E78.5 Hyperlipidemia, unspecified; I11.0 Hypertensive heart disease with heart failure; I50.9 Heart failure, unspecified; E11.9 Type 2 diabetes mellitus without complications; F17.200 Nicotine dependence, unspecified, uncomplicated; Z88.8 Allergy status to other drugs, medicaments and biological substances; Z79.82 Long term (current) use of aspirin; Z79.899 Other long term (current) drug therapy; Z79.4 Long term (current) use of insulin; Z79.51 Long term (current) use of inhaled steroids
CPT/HCPCS: 36415; 70030-TC; 71045; 85025; 85730; 87040; 87086; 93005; A4663

== ENCOUNTER 2019-01-16 17:11 | Emergency (ER) | payer MEDICAID, OTHER ==
[~2019-01-16] VITALS: Ht 165.1 cm; Wt 123.4 kg
[2019-01-16] MEDS ORDERED: CIPR-262 PO (17:30)
--- NOTE | 2019-01-16 18:15 | NUR ---
PT IS IN ROOM #1B, WAITING FOR DR NAIR EVALUATION.
--- NOTE | 2019-01-16 19:20 | NUR ---
Dr. Serrano at bedside for MSE.
[2019-01-16] MEDS ORDERED: IV NORMAL SALINE 1000 ML BAG IV ONE (19:30)
[2019-01-16] MEDS ORDERED: ONDANSETRON 4 MG/2 ML VIAL IV ONE (19:30)
[2019-01-16] MEDS ORDERED: HYDROMORPHONE 1 MG/1 ML DISP.SYRIN IV ONE (19:30)
[2019-01-16 19:45] LABS: BASOPHILS # (AUTO) 0.1 K/uL (0.0-8.0); EOSINOPHILS # (AUTO) 0.3 K/uL (0.0-0.7); EOSINOPHILS % (AUTO) 3.9 % (0.0-7.0); HEMATOCRIT 36.3 % (31.2-41.9); HEMOGLOBIN 12.3 g/dL (10.9-14.3); LYMPHOCYTES % (AUTO) 29.9 % (20.5-51.5); MEAN CORPUSCULAR HEMOGLOBIN 29.8 uug (24.7-32.8); MEAN CORPUSCULAR HGB CONC 34 g/dL (32.3-35.6); MEAN CORPUSCULAR VOLUME 88.2 fL (75.5-95.3); MONOCYTES # (AUTO) 0.6 K/uL (2.0-10.0); MONOCYTES % (AUTO) 8.7 % (0.0-11.0); NEUTROPHILS # (AUTO) 3.8 K/uL (1.8-8.9); NEUTROPHILS % (AUTO) 56.5 % (38.5-71.5); PLATELET COUNT (AUTO) 256 K/uL (179-408); RED BLOOD CELL COUNT(AUTO) 4.12 MIL/uL (3.63-4.92); WHITE BLOOD COUNT (AUTO) 6.8 K/uL (3.8-11.8)
[2019-01-16] MEDS ORDERED: ONDANSETRON 4 MG/2 ML VIAL ONE (19:46)
[2019-01-16] MEDS ORDERED: HYDROMORPHONE 1 MG/1 ML DISP.SYRIN ONE (19:46)
--- NOTE | 2019-01-16 19:50 | NUR ---
Pt provided urine sample, sent to lab.
[2019-01-16 19:52] LABS: CREATININE 1.3 mg/dL (0.6-1.3); POTASSIUM 4.5 mmol/L (3.5-5.1)
--- NOTE | 2019-01-16 19:54 | NUR ---
Ultrasound at bedside.
[2019-01-16 19:57] LABS: *BILIRUBIN,URIN NEGATIVE (NEGATIVE); *BLOOD, URINE 2+ (NEGATIVE); *COLOR,URINE YELLOW (YELLOW); *KETONES,URINE NEGATIVE (NEGATIVE); *UROBILINOGEN,URINE 0.2 E.U./dl (NORMAL); LEUKOCYTE ESTERASE ,URINE NEGATIVE (NEGATIVE); NITRITE, URINE NEGATIVE (NEGATIVE); PH,URINE 5.5 (5.0-8.0); UGLUCOSE NEGATIVE (NEGATIVE)
[2019-01-16 20:03] LABS: BILIRUBIN,DIRECT 0.1 mg/dL (0.0-0.2); BILIRUBIN,TOTAL 0.3 mg/dL (0.2-1.0); TOTAL PROTEIN, SERUM 7.6 g/dL (6.4-8.2)
[2019-01-16 20:18] LABS: *CLARITY,URINE SLIGHTLY HAZY (CLEAR)
[2019-01-16 20:20] LABS: SQUAMOUS EPITHELIAL CELL,UR MODERATE /HPF (NONE SEEN)
--- NOTE | 2019-01-16 21:26 | NUR ---
Patient discharged to home in stable conditon. Written and verbal after care instructions given. Patient verbalizes understanding of instructions. Patient ambulated out of ER with steady gait, no acute signs of distress, VSS, all belongings taken, IV site discontinued.
[2019-01-16 21:32] VITALS: BP 104/68
== END 2019-01-16 21:33 | disposition home or self-care (01) ==
LOC: ER 17:14
DX: N39.0 Urinary tract infection, site not specified (principal); M54.5 Low back pain; E86.0 Dehydration; E11.9 Type 2 diabetes mellitus without complications; E78.5 Hyperlipidemia, unspecified; I11.0 Hypertensive heart disease with heart failure; I50.9 Heart failure, unspecified; Z88.8 Allergy status to other drugs, medicaments and biological substances; Z79.4 Long term (current) use of insulin; Z79.891 Long term (current) use of opiate analgesic; Z79.899 Other long term (current) drug therapy
CPT/HCPCS: 36415; 76705; 80048; 80076; 81001; 83690; 85025; 96361; 96374; 96375; 99284; J1170; J2405; A4663; J7030

== ENCOUNTER 2023-02-22 14:29 | Inpatient (IN) | payer OTHER ==
[~2023-02-22] VITALS: Ht 165.1 cm; Wt 86.2 kg
[~2023-02-22 14:29] MED LIST changes: -ACET325T53 PO; -ASPI-618 PO; -AZIT250T13 PO; -CHOL10002 PO; +CIPR-262 PO; -GUAI5SYR4 PO; -INSU100V28 SQ; -LACT1CAP57 PO; -LORA0.5T48 PO; -PANT40TA2 PO; +SIMV-49 PO; -SIMV40TA5 PO
[2023-02-22] MEDS ORDERED: KETOROLAC TROMETHAMINE 15 MG INJ IVP ONE (14:45)
[2023-02-22] MEDS ORDERED: KETOROLAC TROMETHAMINE 15 MG INJ ONE (14:59)
[2023-02-22 15:02] LABS: *BILIRUBIN,URIN NEGATIVE (NEGATIVE); *BLOOD, URINE 2+ (NEGATIVE); *CLARITY,URINE CLEAR (CLEAR); *COLOR,URINE YELLOW (YELLOW); *KETONES,URINE NEGATIVE (NEGATIVE); LEUKOCYTE ESTERASE ,URINE 1+ (NEGATIVE); NITRITE, URINE NEGATIVE (NEGATIVE); UGLUCOSE NEGATIVE (NEGATIVE)
[2023-02-22 15:13] LABS: CREATININE 1.3 mg/dL (0.6-1.3); POTASSIUM 4.4 mmol/L (3.5-5.1)
[2023-02-22 15:18] LABS: BILIRUBIN,TOTAL 0.5 mg/dL (0.2-1.0); TOTAL PROTEIN, SERUM 7.8 g/dL (6.4-8.2)
[2023-02-22] MEDS ORDERED: SWABABLE VALVE TRANSFER SET EA MC ONE (15:22)
[2023-02-22] MEDS ORDERED: IV NORMAL SALINE 250 ML IV ONE (15:22)
[2023-02-22] MEDS ORDERED: IOHEXOL 300MG/ML 100 ML INFUS..BTL ONE (15:22)
[2023-02-22 15:23] LABS: HEMATOCRIT 39.5 % (31.2-41.9); MEAN CORPUSCULAR HEMOGLOBIN 29.8 uug (24.7-32.8); MEAN CORPUSCULAR VOLUME 89.6 fL (75.5-95.3); PLATELET COUNT (AUTO) 275 K/uL (179-408)
[2023-02-22] MEDS ORDERED: IV NORMAL SALINE 500 ML BAG IV ONE ×2 (15:30→16:00)
[2023-02-22] MEDS ORDERED: CEFEPIME HCL 1 G in IV DEXTROSE 5% 50 ML IV ONE (17:00)
[2023-02-22] MEDS ORDERED: BISACODYL 5 MG TABLET.DR PO ONE ×2 (17:00→17:08)
[2023-02-22] MEDS ORDERED: MORPHINE SULFATE 4 MG/1 ML DISP.SYRIN IV ONE (17:00)
[2023-02-22] MEDS ORDERED: METOCLOPRAMIDE HCL 10 MG/2 ML VIAL ONE (17:00)
[2023-02-22] MEDS ORDERED: METOCLOPRAMIDE HCL 10 MG/2 ML VIAL IV ONE (17:00)
[2023-02-22] MEDS ORDERED: MORPHINE SULFATE 4 MG/1 ML DISP.SYRIN ONE (17:00)
[2023-02-22] MEDS ORDERED: OMEP40CA21 PO (17:01)
[2023-02-22] MEDS ORDERED: ATEN25TA PO (17:01)
[2023-02-22] MEDS ORDERED: ACET1TAB23 PO (17:01)
[2023-02-22] MEDS ORDERED: CEFEPIME HCL 1 G VIAL ONE (17:01)
[2023-02-22] MEDS ORDERED: LOSA50TA39 PO (17:01)
[2023-02-22] MEDS ORDERED: DICY10CA21 PO (17:01)
[2023-02-22] MEDS ORDERED: SEMA0.25 SQ (17:06)
[2023-02-22] MEDS ORDERED: INSULIN REGULAR, HUMAN 300 UNIT/3 ML VIAL SQ PRN (19:00)
[2023-02-22] MEDS ORDERED: REMEDY ESSENTIAL ZINC PASTE 113 GM TP PRN (19:00)
[2023-02-22] MEDS ORDERED: ONDANSETRON 4 MG/2 ML VIAL IV PRN (19:00)
[2023-02-22] MEDS ORDERED: MAGNESIUM HYDROXIDE 30 ML LIQUID UDC PO PRN (19:00)
[2023-02-22] MEDS ORDERED: ACETAMINOPHEN 325 MG TABLET PO PRN (19:00)
[2023-02-22] MEDS ORDERED: DEXTROSE 50% 50 ML DISP.SYRIN IV PRN (19:00)
[2023-02-22 19:04] LABS: BACTERIA,URINE MANY /HPF (NONE SEEN); RBC,URINE 20-50 /HPF (0-3); SQUAMOUS EPITHELIAL CELL,UR FEW /HPF (NONE SEEN)
[2023-02-22 19:30] VITALS: BP 118/80
[2023-02-22] MEDS: SIMVASTATIN 40 MG TABLET PO SCH (21:02)
[2023-02-22] MEDS: HYDROCODONE/APAP 5-325MG TABLET PO PRN (21:03)
[2023-02-22] MEDS: BLOOD SUGAR DIAGNOSTIC 1 EACH STRIP VI SCH (21:07)
[2023-02-22] MEDS ORDERED: CEFEPIME HCL 1 G in IV DEXTROSE 5% 50 ML IV SCH (22:00)
[2023-02-23] MEDS: ZOLPIDEM 5 MG TABLET PO PRN ×2 (01:32→21:57)
[2023-02-23] MEDS: HYDROCODONE/APAP 5-325MG TABLET PO PRN ×3 (04:07→21:50)
[2023-02-23 04:26] VITALS: BP 129/52
[2023-02-23] MEDS ORDERED: CEFEPIME HCL 1 G VIAL ONE (04:47)
[2023-02-23] MEDS: CEFEPIME HCL 1 G in IV DEXTROSE 5% 50 ML IV SCH ×2 (05:09→16:27)
[2023-02-23] MEDS: BLOOD SUGAR DIAGNOSTIC 1 EACH STRIP VI SCH ×4 (06:45→21:57)
[2023-02-23 06:58] LABS: HEMATOCRIT 38.6 % (31.2-41.9); MEAN CORPUSCULAR HEMOGLOBIN 29.9 uug (24.7-32.8); MEAN CORPUSCULAR VOLUME 89.5 fL (75.5-95.3); PLATELET COUNT (AUTO) 270 K/uL (179-408)
[2023-02-23 07:26] LABS: CREATININE 1.3 mg/dL (0.6-1.3); MAGNESIUM 1.8 mg/dL (1.8-2.4); PHOSPHOROUS 3.9 mg/dL (2.5-4.9); POTASSIUM 3.9 mmol/L (3.5-5.1)
[2023-02-23] MEDS: ATENOLOL 25 MG TABLET PO SCH ×2 (08:07→16:11)
[2023-02-23] MEDS: GABAPENTIN 300 MG CAPSULE PO SCH ×2 (08:07→16:11)
[2023-02-23] MEDS: DICYCLOMINE HCL 10 MG CAPSULE PO SCH ×3 (08:08→16:10)
[2023-02-23] MEDS: AMITRIPTYLINE HCL 50 MG TABLET PO SCH ×2 (08:08→16:10)
[2023-02-23] MEDS: CHOLECALCIFEROL 1,000 UNIT TABLET PO SCH ×2 (08:08→08:30)
[2023-02-23] MEDS: LOSARTAN POTASSIUM 50 MG TABLET PO SCH (08:08)
[2023-02-23] MEDS: PANTOPRAZOLE SODIUM 40 MG VIAL IV SCH (08:11)
[2023-02-23 11:59] VITALS: BP 115/54
[2023-02-23 16:00] VITALS: BP 127/59
[2023-02-23 20:00] VITALS: BP 101/48
[2023-02-23] MEDS: SIMVASTATIN 40 MG TABLET PO SCH (21:32)
[2023-02-24] VITALS: BP 127/68
[2023-02-24 04:00] VITALS: BP 141/59
[2023-02-24] MEDS: CEFEPIME HCL 1 G in IV DEXTROSE 5% 50 ML IV SCH ×2 (04:31→16:19)
[2023-02-24] MEDS: HYDROCODONE/APAP 5-325MG TABLET PO PRN ×3 (05:43→21:10)
[2023-02-24 06:53] LABS: HEMATOCRIT 39.8 % (31.2-41.9); MEAN CORPUSCULAR HEMOGLOBIN 29.8 uug (24.7-32.8); PLATELET COUNT (AUTO) 270 K/uL (179-408)
[2023-02-24] MEDS: BLOOD SUGAR DIAGNOSTIC 1 EACH STRIP VI SCH ×4 (06:54→20:30)
[2023-02-24 07:20] LABS: CREATININE 1.1 mg/dL (0.6-1.3); MAGNESIUM 2.1 mg/dL (1.8-2.4); PHOSPHOROUS 3.4 mg/dL (2.5-4.9); POTASSIUM 4.7 mmol/L (3.5-5.1)
[2023-02-24] MEDS: CHOLECALCIFEROL 1,000 UNIT TABLET PO SCH (08:11)
[2023-02-24] MEDS: AMITRIPTYLINE HCL 50 MG TABLET PO SCH ×2 (08:11→16:13)
[2023-02-24] MEDS: DICYCLOMINE HCL 10 MG CAPSULE PO SCH ×3 (08:11→16:13)
[2023-02-24] MEDS: LOSARTAN POTASSIUM 50 MG TABLET PO SCH (08:11)
[2023-02-24] MEDS: ATENOLOL 25 MG TABLET PO SCH ×2 (08:11→16:14)
[2023-02-24] MEDS: PANTOPRAZOLE SODIUM 40 MG VIAL IV SCH (08:29)
[2023-02-24] MEDS: GABAPENTIN 300 MG CAPSULE PO SCH ×2 (08:39→16:13)
[2023-02-24 11:36] VITALS: BP 128/53
[2023-02-24 16:00] VITALS: BP 157/76
[2023-02-24] MEDS ORDERED: BISACODYL 10 MG SUPP.RECT RC PRN (19:00)
[2023-02-24 20:00] VITALS: BP 139/55
[2023-02-24] MEDS: SIMVASTATIN 40 MG TABLET PO SCH (20:14)
[2023-02-25] MEDS: HYDROCODONE/APAP 5-325MG TABLET PO PRN ×2 (03:10→18:15)
[2023-02-25 04:00] VITALS: BP 103/48
[2023-02-25] MEDS: CEFEPIME HCL 1 G in IV DEXTROSE 5% 50 ML IV SCH ×2 (04:17→17:11)
[2023-02-25] MEDS: BLOOD SUGAR DIAGNOSTIC 1 EACH STRIP VI SCH ×4 (06:34→20:50)
[2023-02-25 06:53] LABS: HEMATOCRIT 37.6 % (31.2-41.9); MEAN CORPUSCULAR VOLUME 89.5 fL (75.5-95.3); PLATELET COUNT (AUTO) 237 K/uL (179-408)
[2023-02-25] MEDS ORDERED: HYDROMORPHONE 1 MG/1 ML DISP.SYRIN IV ONE (07:15)
[2023-02-25 07:26] LABS: CREATININE 1.2 mg/dL (0.6-1.3); MAGNESIUM 2.1 mg/dL (1.8-2.4); PHOSPHOROUS 3.4 mg/dL (2.5-4.9); POTASSIUM 4.4 mmol/L (3.5-5.1)
[2023-02-25] MEDS: CHOLECALCIFEROL 1,000 UNIT TABLET PO SCH (08:49)
[2023-02-25] MEDS: DICYCLOMINE HCL 10 MG CAPSULE PO SCH ×3 (08:49→16:07)
[2023-02-25] MEDS: AMITRIPTYLINE HCL 50 MG TABLET PO SCH ×2 (08:49→16:07)
[2023-02-25] MEDS: GABAPENTIN 300 MG CAPSULE PO SCH ×2 (08:49→16:07)
[2023-02-25] MEDS: ATENOLOL 25 MG TABLET PO SCH ×2 (09:00→16:07)
[2023-02-25] MEDS: LOSARTAN POTASSIUM 50 MG TABLET PO SCH (09:00)
[2023-02-25] MEDS: PANTOPRAZOLE SODIUM 40 MG VIAL IV SCH (09:05)
[2023-02-25] MEDS ORDERED: KETOROLAC TROMETHAMINE 15 MG INJ IM PRN (09:30)
[2023-02-25 11:31] VITALS: BP 90/48
[2023-02-25 16:00] VITALS: BP 112/56
[2023-02-25 20:35] VITALS: BP 102/55
[2023-02-25] MEDS: SIMVASTATIN 40 MG TABLET PO SCH (20:49)
[2023-02-26] MEDS: HYDROCODONE/APAP 5-325MG TABLET PO PRN ×2 (00:18→06:26)
[2023-02-26 04:38] VITALS: BP 129/88
[2023-02-26] MEDS: CEFEPIME HCL 1 G in IV DEXTROSE 5% 50 ML IV SCH (05:03)
[2023-02-26] MEDS: BLOOD SUGAR DIAGNOSTIC 1 EACH STRIP VI SCH ×2 (06:46→10:53)
[2023-02-26] MEDS ORDERED: PANTOPRAZOLE SODIUM 40 MG TABLET.DR PO SCH (07:00)
[2023-02-26] MEDS: GABAPENTIN 300 MG CAPSULE PO SCH (08:31)
[2023-02-26] MEDS: AMITRIPTYLINE HCL 50 MG TABLET PO SCH (08:31)
[2023-02-26] MEDS: ATENOLOL 25 MG TABLET PO SCH (08:31)
[2023-02-26] MEDS: DICYCLOMINE HCL 10 MG CAPSULE PO SCH ×2 (08:31→13:01)
[2023-02-26] MEDS: LOSARTAN POTASSIUM 50 MG TABLET PO SCH (08:32)
[2023-02-26] MEDS: CHOLECALCIFEROL 1,000 UNIT TABLET PO SCH (08:32)
[2023-02-26 12:00] VITALS: BP 98/58
[2023-02-26] MEDS ORDERED: HYDR-3972 PO (13:21)
[2023-02-26] MEDS ORDERED: NITR100C6 PO (13:21)
[2023-02-26] MEDS ORDERED: NITR100C PO (15:12)
== END 2023-02-26 16:00 | disposition home or self-care (01) | DRG 690 ==
LOC: ER 14:29 → MEDSURG3 18:17
PROVIDERS: ADMIT Nurse Practitioner Acute Care; ATTEND Nurse Practitioner Acute Care
DX: N39.0 Urinary tract infection, site not specified (principal); I13.0 Hypertensive heart and chronic kidney disease with heart failure and stage 1 through stage 4 chronic kidney disease, or unspecified chronic kidney disease; I50.32 Chronic diastolic (congestive) heart failure; B95.2 Enterococcus as the cause of diseases classified elsewhere; E66.9 Obesity, unspecified; Z68.31 Body mass index [BMI] 31.0-31.9, adult; Z98.84 Bariatric surgery status; E11.22 Type 2 diabetes mellitus with diabetic chronic kidney disease; N18.9 Chronic kidney disease, unspecified; Z87.440 Personal history of urinary (tract) infections; E78.5 Hyperlipidemia, unspecified; Z87.891 Personal history of nicotine dependence; Z87.442 Personal history of urinary calculi; E11.42 Type 2 diabetes mellitus with diabetic polyneuropathy; Z88.8 Allergy status to other drugs, medicaments and biological substances; Z79.84 Long term (current) use of oral hypoglycemic drugs; E86.0 Dehydration; R79.89 Other specified abnormal findings of blood chemistry; Z86.73 Personal history of transient ischemic attack (TIA), and cerebral infarction without residual deficits; M19.041 Primary osteoarthritis, right hand; Z91.81 History of falling; F32.A Depression, unspecified
CPT/HCPCS: 36415; 83605; 83735; 84100; 85025; 87040; A4663; C9113; G0378; J0692; J1170; J1815; J1885; J2270; J2765; J7040; Q9967